=== PATIENT | male | born 1960 | race Caucasian/White ===

== ENCOUNTER 2020-07-13 10:33 | Emergency (ER) | payer MEDICAID, OTHER, SELFPAY ==
--- NOTE | 2020-07-13 10:29 | ED.URI ---
HPI - URI/Sore Throat General Chief Complaint: Dyspnea Stated Complaint: COUGH/DIFF BREATHING 96%2L,?COVID Time Seen by Provider: 07/13/20 10:43 Source: patient Mode of arrival: ambulatory Limitations: no limitations History of Present Illness MD elicited complaint: fever, cough and other (body aches, dyspnea) Onset (ago): day(s) (2) Consistency: progressively worsening Severity: moderate Able to tolerate fluids by mouth: Yes Exacerbating factors: exertion Relieving factors: nothing Context: sick contacts (states people in the house have flu like illness) Associated symptoms: denies other symptoms, fever, chills, myalgias, headache, cough, shortness of breath and nausea Treatments prior to arrival: none Related Data Previous Rx's Medication Instructions Recorded albuterol sulfate 2 puff INHALATION QID PRN #6.7 g 07/13/20 azithromycin See Rx Instructions .ROUTE 07/13/20 .COMPLEX #6 tab dexamethasone 4 mg PO DAILY 5 Days #5 tab 07/13/20 Allergies Allergy/AdvReac Type Severity Reaction Status Date / Time No Known Allergies Allergy Unverified 04/08/20 19:04 [No Known Allergies*] Review of Systems Review of Systems: Constitutional : pos Fever, pos Chills ENT/Mouth : No sore throat, pos Rhinorrhea, No Swallowing Difficulty Eyes: No Eye Pain, No Swelling, No Redness Cardiovascular : No Chest Pain, positive SOB, No Orthopnea, no Edema Respiratory : pos Cough, No Sputum, No Wheezing, positive dyspnea Gastrointestinal : pos Nausea, No Vomiting, No Diarrhea, No abdominal Pain, No Hematochezia, No Melena Genitourinary : No Dysuria, No Urinary Frequency, No Hematuria Musculoskeletal : No joint pain, pos Myalgias Skin : No Skin Lesions, No rash Neuro : No Weakness, No Numbness, No Dizziness, No Headache Psych : No Anxiety/Panic, No Depression Heme/Lymph: No Bruising, No Lymphadenopathy Endocrine : No Polyuria, No Polydipsia All other systems reviewed and are negative [facility] Past Medical History Attestation statement: The following information was validated with the patient. Medical History Depression Diabetes Hyperlipidemia Social History Social History (Updated 07/13/20 @ 10:48 by Haylee Iverson DO) Alcohol intake: never Smoking Status: Never smoker Use of substances other than those prescribed or required for medical reasons: No Advance Directives: No Advance Directives Information Provided: Yes Physical Exam Vital Signs: Vital Signs: Last Vital Signs Temp 99.2 F 07/13/20 10:37 Pulse 86 07/13/20 11:04 Resp 18 07/13/20 10:37 BP 127/68 07/13/20 10:37 Pulse Ox 95 07/13/20 10:37 Body Mass Index 21.9 Appearance: Alert. Oriented X3. No acute distress. Eyes: Pupils equal, round and reactive to light. ENT: Pharynx normal. Neck: Normal inspection. Neck supple. no meningeal signs CVS: Normal heart rate and rhythm. Pulses normal. Respiratory: No respiratory distress. Breath sounds decreased with rhonchi and bilateral lower lobe faint rales Abdomen: Soft and non-tender. Skin: Skin warm and dry. Normal skin color. Normal skin turgor. Extremities: No lower extremity edema. No calf ttp Neuro: Oriented X 3. No motor deficit. No sensory deficit. Course Course Course Narrative: patient requires no O2 at this time sats > 93% and did well with ambulation trial , will treat as COVId and send home with precautions MDM - URI/Sore Throat MDM Narrative Medical decision making narrative: 59 yo male with DM and HPL here with 2 days of URI, body aches, dyspnea sick contacts at home flu will need labs, INH, tylenol, EKG, CXR, COVID swab, currently his O2 sat on ambulation is actually 93%, dispo per results and observation he is not a smoker and denies hx of asthma Lab Data Result diagrams: 07/13/20 10:56 07/13/20 10:56 Labs: Lab Results 07/13/20 07/13/20 07/13/20 Range/Units 10:56 10:56 10:56 WBC 9.1 (4.8-10.8) X10*3/uL RBC 4.36 L (4.60-5.80) X10*6/uL Hgb 13.0 L (14.0-18.0) g/dl Hct 38.3 L (42-52) % MCV 87.8 (80-98) fL MCH 29.8 (27.0-33.0) pg MCHC 33.9 (31.0-36.0) g/dl RDW 12.4 (11.0-16.0) % Plt Count 390 (160-400) X10*3/uL MPV 10.6 (9.4-12.4) fL Immature Gran % (Auto) 1.9 H (0.0-0.4) % Neut % (Auto) 78.8 H (45-73) % Lymph % (Auto) 9.8 L (20-40) % [place] % (Auto) 9.1 (2-11) % Eos % (Auto) 0.2 (0-4) % Baso % (Auto) 0.2 (0-2) % Lymph # (Auto) 0.9 L (1.2-4.9) X10*3/uL [place] # (Auto) 0.8 (0.1-1.2) X10*3/uL Eos # (Auto) 0.0 (0.0-0.4) X10*3/uL Baso # (Auto) 0.0 (0.0-0.2) X10*3/uL Abs Immat Gran (auto) 0.17 H (0.00-0.03) X10*3/uL Absolute Neuts (auto) 7.2 (2.0-8.3) X10*3/uL Absolute Nucleated RBC 0.000 (0.0-0.012) X10*3/uL Nucleated RBC % (auto) 0.0 (0.0-0.2) /100WBC Smear Tech's Comments VERIFIED PT 12.2 (10.8-13.0) SEC INR 1.0 (0.9-1.1) APTT 31.2 (24.1-38.0) SEC VBG pH (7.32-7.43) VBG pCO2 mmhg VBG pO2 mmhg VBG HCO3 mmol/L VBG O2 Saturation % VBG Base Excess mmol/L Sodium 136 (135-145) mmol/L Potassium 4.5 (3.3-5.1) mmol/l Chloride 100 (96-108) mmol/L Carbon Dioxide 27 (22-29) mmol/L Anion Gap 14 (12-20) BUN 12 (9-16) mg/dL Creatinine 0.69 (0.5-1.4) mg/dL Estim Creat Clear Calc 89.8 Estimated GFR > 60 Random Glucose 323 H (60-115) mg/dL Lactic Acid (0.5-2.0) mmol/L Calcium 7.9 L (8.4-10.2) mg/dL Magnesium (1.6-2.6) mg/dL Ferritin (20-250) ng/mL Total Bilirubin (0.0-1.0) mg/dL Direct Bilirubin (0.0-0.5) mg/dL AST (5-37) U/L ALT (0-40) U/L Alkaline Phosphatase (39-117) U/L Lactate Dehydrogenase (118-273) U/L Troponin I High Sens (<3.5-35.0) ng/L Total Protein (6.5-8.0) g/dL Albumin (3.5-5.0) g/dL Lipase (8-78) U/L Procalcitonin ng/mL Coronavirus (PCR) (Negative) Influenza Type A (PCR) (Negative) Influenza Type B (PCR) (Negative) RSV RNA Qual (PCR) (Negative) 07/13/20 07/13/20 07/13/20 Range/Units 10:56 10:56 10:56 WBC (4.8-10.8) X10*3/uL RBC (4.60-5.80) X10*6/uL Hgb (14.0-18.0) g/dl Hct (42-52) % MCV (80-98) fL MCH (27.0-33.0) pg MCHC (31.0-36.0) g/dl RDW (11.0-16.0) % Plt Count (160-400) X10*3/uL MPV (9.4-12.4) fL Immature Gran % (Auto) (0.0-0.4) % Neut % (Auto) (45-73) % Lymph % (Auto) (20-40) % [place] % (Auto) (2-11) % Eos % (Auto) (0-4) % Baso % (Auto) (0-2) % Lymph # (Auto) (1.2-4.9) X10*3/uL [place] # (Auto) (0.1-1.2) X10*3/uL Eos # (Auto) (0.0-0.4) X10*3/uL Baso # (Auto) (0.0-0.2) X10*3/uL Abs Immat Gran (auto) (0.00-0.03) X10*3/uL Absolute Neuts (auto) (2.0-8.3) X10*3/uL Absolute Nucleated RBC (0.0-0.012) X10*3/uL Nucleated RBC % (auto) (0.0-0.2) /100WBC Smear Tech's Comments PT (10.8-13.0) SEC INR (0.9-1.1) APTT (24.1-38.0) SEC VBG pH (7.32-7.43) VBG pCO2 mmhg VBG pO2 mmhg VBG HCO3 mmol/L VBG O2 Saturation % VBG Base Excess mmol/L Sodium (135-145) mmol/L Potassium (3.3-5.1) mmol/l Chloride (96-108) mmol/L Carbon Dioxide (22-29) mmol/L Anion Gap (12-20) BUN (9-16) mg/dL Creatinine (0.5-1.4) mg/dL Estim Creat Clear Calc Estimated GFR Random Glucose (60-115) mg/dL Lactic Acid 1.4 (0.5-2.0) mmol/L Calcium (8.4-10.2) mg/dL Magnesium 1.9 (1.6-2.6) mg/dL Ferritin 554 H (20-250) ng/mL Total Bilirubin 0.3 (0.0-1.0) mg/dL Direct Bilirubin 0.2 (0.0-0.5) mg/dL AST 31 (5-37) U/L ALT 29 (0-40) U/L Alkaline Phosphatase 86 (39-117) U/L Lactate Dehydrogenase 337 H (118-273) U/L Troponin I High Sens < 3.5 (<3.5-35.0) ng/L Total Protein 5.7 L (6.5-8.0) g/dL Albumin 2.8 L (3.5-5.0) g/dL Lipase 30 (8-78) U/L Procalcitonin ng/mL Coronavirus (PCR) (Negative) Influenza Type A (PCR) (Negative) Influenza Type B (PCR) (Negative) RSV RNA Qual (PCR) (Negative) 07/13/20 07/13/20 07/13/20 Range/Units 10:56 10:56 11:05 WBC (4.8-10.8) X10*3/uL RBC (4.60-5.80) X10*6/uL Hgb (14.0-18.0) g/dl Hct (42-52) % MCV (80-98) fL MCH (27.0-33.0) pg MCHC (31.0-36.0) g/dl RDW (11.0-16.0) % Plt Count (160-400) X10*3/uL MPV (9.4-12.4) fL Immature Gran % (Auto) (0.0-0.4) % Neut % (Auto) (45-73) % Lymph % (Auto) (20-40) % [place] % (Auto) (2-11) % Eos % (Auto) (0-4) % Baso % (Auto) (0-2) % Lymph # (Auto) (1.2-4.9) X10*3/uL [place] # (Auto) (0.1-1.2) X10*3/uL Eos # (Auto) (0.0-0.4) X10*3/uL Baso # (Auto) (0.0-0.2) X10*3/uL Abs Immat Gran (auto) (0.00-0.03) X10*3/uL Absolute Neuts (auto) (2.0-8.3) X10*3/uL Absolute Nucleated RBC (0.0-0.012) X10*3/uL Nucleated RBC % (auto) (0.0-0.2) /100WBC Smear Tech's Comments PT (10.8-13.0) SEC INR (0.9-1.1) APTT (24.1-38.0) SEC VBG pH 7.41 (7.32-7.43) VBG pCO2 35 mmhg VBG pO2 54 mmhg VBG HCO3 22 mmol/L VBG O2 Saturation 87.9 % VBG Base Excess -2.1 mmol/L Sodium (135-145) mmol/L Potassium (3.3-5.1) mmol/l Chloride (96-108) mmol/L Carbon Dioxide (22-29) mmol/L Anion Gap (12-20) BUN (9-16) mg/dL Creatinine (0.5-1.4) mg/dL Estim Creat Clear Calc Estimated GFR Random Glucose (60-115) mg/dL Lactic Acid (0.5-2.0) mmol/L Calcium (8.4-10.2) mg/dL Magnesium (1.6-2.6) mg/dL Ferritin (20-250) ng/mL Total Bilirubin (0.0-1.0) mg/dL Direct Bilirubin (0.0-0.5) mg/dL AST (5-37) U/L ALT (0-40) U/L Alkaline Phosphatase (39-117) U/L Lactate Dehydrogenase (118-273) U/L Troponin I High Sens (<3.5-35.0) ng/L Total Protein (6.5-8.0) g/dL Albumin (3.5-5.0) g/dL Lipase (8-78) U/L Procalcitonin 0.17 ng/mL Coronavirus (PCR) POSITIVE A (Negative) Influenza Type A (PCR) NEGATIVE (Negative) Influenza Type B (PCR) NEGATIVE (Negative) RSV RNA Qual (PCR) NEGATIVE (Negative) ECG Data Attestation: I personally reviewed and interpreted this ECG as follows: ECG interpretation date: 07/13/20 ECG interpretation time: 11:14 Interpretation: Rate: 88 Rhythm: NSR [place]: normal Normal P waves. Normal CLEMENT. Normal QRS complex. ST T wave : normal no KENTRELL qTC: normal prior studies: no acute ischemia The study has been interpreted contemporaneously by me. . Discharge Plan Discharge Clinical Impression: COVID-19, Pneumonia due to 2019-nCoV Patient Disposition: Home, Self-Care Instructions: COVID-19 (Coronavirus Disease 2019) (ED) Additional Instructions: return to ED for any worsening symptoms or concerns Prescriptions: New albuterol sulfate 90 mcg/actuation HFA aerosol inhaler 2 puff inhalation QID PRN (Reason: shortness of breath or wheezing) Qty: 6.7 RF: 0 azithromycin 500 mg tablet See Rx Instructions .ROUTE .COMPLEX Qty: 6 RF: 0 dexamethasone 4 mg tablet 4 mg PO DAILY 5 Days Qty: 5 RF: 0 Stand Alone Forms: Work/School Release Print Language: Maldivian
[2020-07-13 10:37] VITALS: BP 127/68; PULSE 84; RESP 18; TEMP 37.3; O2SAT 95; BMI 21.9
--- NOTE | 2020-07-13 10:43 | ECG_ITS ---
Test Reason : SOB Blood Pressure : / mmHG Vent. Rate : 088 BPM Atrial Rate : 088 BPM P-R Int : 138 ms QRS Dur : 070 ms QT Int : 378 ms P-R-T Axes : 037 032 056 degrees QTc Int : 457 ms Normal sinus rhythm Normal ECG No previous ECGs available Referred By: Haylee Iverson Electronically Signed By:JESUSITA DIXON MD
--- NOTE | 2020-07-13 10:44 | XR_ITS ---
EXAMINATION: XR CHEST CLINICAL INFORMATION: Dyspnea and fever COMPARISON: None TECHNIQUE: Frontal view of the chest was obtained. FINDINGS: The cardiac and mediastinal contours are normal. There are patchy bilateral infiltrates suggestive of pneumonia. The lung volumes are low. There is no pleural effusion or pneumothorax. There are degenerative changes of the spine. XR/XR chest 1V IMPRESSION: Bilateral infiltrates suggestive of pneumonia.
[2020-07-13] MEDS: Albuterol Sulfate 90 MCG 8 GM INHALER 4 PUFF INHALE (11:03)
[2020-07-13 11:04] VITALS: PULSE 86; O2SAT 97
[2020-07-13 11:13] LABS: Basophils Percent Auto 0.2 % (0-2); Eosinophils Percent Auto 0.2 % (0-4); Hematocrit 38.3 % (42-52); Imm Gran Abs Auto 0.17 X10*3/uL (0.00-0.03); Imm Gran Pct Auto 1.9 % (0.0-0.4); Lymphocytes Absolute Auto 0.9 X10*3/uL (1.2-4.9); Lymphocytes Percent Auto 9.8 % (20-40); MANUAL DIFF FLAG SCAN; Mean Corpuscular HGB Conc 33.9 g/dl (31.0-36.0); Mean Corpuscular Hemoglobin 29.8 pg (27.0-33.0); Mean Corpuscular Volume 87.8 fL (80-98); Mean Platelet Volume 10.6 fL (9.4-12.4); Monocytes Absolute Auto 0.8 X10*3/uL (0.1-1.2); Monocytes Percent Auto 9.1 % (2-11); Neutrophils Absolute Auto 7.2 X10*3/uL (2.0-8.3); Neutrophils Percent Auto 78.8 % (45-73); Platelet Count 390 X10*3/uL (160-400); Red Blood Count 4.36 X10*6/uL (4.60-5.80); Red Cell Distribution Width 12.4 % (11.0-16.0); SCAN SMEAR FLAG 1; White Blood Count 9.1 X10*3/uL (4.8-10.8)
[2020-07-13 11:18] LABS: Prothrombin Time 12.2 SEC (10.8-13.0)
[2020-07-13 11:21] LABS: Partial Thromboplastin Time 31.2 SEC (24.1-38.0)
[2020-07-13 11:23] LABS: Base Excess VBG -2.1 mmol/L; HCO3 VBG 22 mmol/L; Oxygen Saturation VBG 87.9 %
[2020-07-13 11:24] LABS: PCO2 VBG 35 mmhg; PO2 VBG 54 mmhg; pH VBG 7.41 (7.32-7.43)
[2020-07-13 11:33] LABS: Lactic Acid 1.4 mmol/L (0.5-2.0)
[2020-07-13 11:41] LABS: Alanine Aminotransferase 29 U/L (0-40); Albumin Level 2.8 g/dL (3.5-5.0); Alkaline Phosphatase 86 U/L (39-117); Aspartate Amino Transferase 31 U/L (5-37); Bilirubin Direct 0.2 mg/dL (0.0-0.5); Bilirubin Total 0.3 mg/dL (0.0-1.0); Lactate Dehydrogenase 337 U/L (118-273); Lipase 30 U/L (8-78); Magnesium 1.9 mg/dL (1.6-2.6); Total Protein 5.7 g/dL (6.5-8.0)
[2020-07-13 11:42] LABS: Anion Gap 14 (12-20); Blood Urea Nitrogen 12 mg/dL (9-16); Calcium 7.9 mg/dL (8.4-10.2); Carbon Dioxide 27 mmol/L (22-29); Chloride 100 mmol/L (96-108); Creatinine Clr Calc Pharmacy 89.8; Estimated Glomerular Filt Rate > 60; Glucose Random 323 mg/dL (60-115); Potassium 4.5 mmol/l (3.3-5.1); Sodium 136 mmol/L (135-145)
[2020-07-13 11:45] LABS: Troponin-I High Sensitivity < 3.5 ng/L (<3.5-35.0)
[2020-07-13 11:47] LABS: Influenza A PCR NEGATIVE (Negative); Influenza B PCR NEGATIVE (Negative); Resp Syncy Virus RNA Qual PCR NEGATIVE (Negative); SARS COV2 PCR INHOUSE POSITIVE (Negative)
[2020-07-13 11:48] LABS: SLIDE REVIEW VERIFIED
[2020-07-13 12:05] LABS: Procalcitonin 0.17 ng/mL
[2020-07-13 12:06] LABS: Ferritin 554 ng/mL (20-250)
[2020-07-13 12:26] VITALS: BP 123/67; PULSE 91; RESP 16; TEMP 37.3; O2SAT 92
[2020-07-13] MEDS: cefTRIAXone sodium 1 GM in 0.9 % Sodium Chloride 50 ML IV (12:42)
[2020-07-13] MEDS: Acetaminophen 325 MG TABLET 650 MG PO (12:42)
== END 2020-07-13 15:03 | disposition home or self-care (01) ==
PROVIDERS: Emergency Provider Emergency Medicine
DX: U07.1 COVID-19 (principal); J12.89 Other viral pneumonia; R05 Cough; M79.10 Myalgia, unspecified site; Z79.899 Other long term (current) drug therapy
CPT/HCPCS: 0241U; 36415; 71045; 80048; 80076; 82728; 82803; 83605; 83615; 83690; 83735; 84145; 84484; 85025; 85610; 85730; 87040; 93005; 94640; 96365; 99284; J0696

== ENCOUNTER 2023-07-02 09:34 | Outpatient (REF) | payer MEDICAID, OTHER, SELFPAY ==
[2023-07-02 11:42] LABS: Basophils Percent Auto 0.5 % (0-2); Eosinophils Absolute Auto 0.1 X10*3/uL (0.0-0.4); Hemoglobin 15.4 g/dl (14.0-18.0); Imm Gran Abs Auto 0.02 X10*3/uL (0.00-0.03); Imm Gran Pct Auto 0.3 % (0.0-0.4); Lymphocytes Absolute Auto 2.1 X10*3/uL (1.2-4.9); Lymphocytes Percent Auto 36.7 % (20-40); MANUAL DIFF FLAG SCAN; Mean Corpuscular HGB Conc 33.5 g/dl (31.0-36.0); Mean Corpuscular Hemoglobin 30.3 pg (27.0-33.0); Mean Corpuscular Volume 90.6 fL (80.0-98.0); Mean Platelet Volume 11.2 fL (9.4-12.4); Monocytes Absolute Auto 0.5 X10*3/uL (0.1-1.2); Neutrophils Absolute Auto 3.1 x10*3/uL (2.0-8.3); Neutrophils Percent Auto 52.5 % (45-73); Platelet Count 300 X10*3/uL (160-400); Red Blood Count 5.08 X10*6/uL (4.60-5.80); Red Cell Distribution Width 12.4 % (11.0-16.0); SCAN SMEAR FLAG 1; White Blood Count 5.8 X10*3/uL (4.8-10.8)
[2023-07-02 12:04] LABS: SLIDE REVIEW VERIFIED
[2023-07-02 12:16] LABS: Alanine Aminotransferase 17 U/L (0-40); Albumin Level 4.4 g/dL (3.5-5.0); Alkaline Phosphatase 144 U/L (39-117); Anion Gap 16 (12-20); Aspartate Amino Transferase 17 U/L (5-37); Bilirubin Total 0.3 mg/dL (0.0-1.0); Blood Urea Nitrogen 23 mg/dL (9-16); Carbon Dioxide 23 mmol/L (22-29); Chloride 103 mmol/L (96-108); Cholesterol 258 mg/dL (<200); Estimated Glomerular Filt Rate > 60; Glucose Random 402 mg/dL (60-115); HDL Cholesterol 66 mg/dL (>40); LDL Cholesterol Calculated 153 mg/dL (<100); Potassium 4.8 mmol/L (3.3-5.1); Sodium 137 mmol/L (135-145); Total Protein 7.9 g/dL (6.5-8.0); Triglycerides 195 mg/dL (<150)
[2023-07-02 12:47] LABS: Creatinine Urine 44.48 mg/dL; Microalbum/Creatinine Ratio Ur 53.9 ug/mg cr (<30)
== END 2023-07-02 09:35 | disposition home or self-care (01) ==
LOC: HO.HHCL 09:34
PROVIDERS: Visit Provider Internal Medicine Geriatric Medicine
DX: E11.65 Type 2 diabetes mellitus with hyperglycemia (principal); E11.42 Type 2 diabetes mellitus with diabetic polyneuropathy; E11.319 Type 2 diabetes mellitus with unspecified diabetic retinopathy without macular edema; H54.7 Unspecified visual loss; Z79.4 Long term (current) use of insulin
CPT/HCPCS: 36415; 80053; 80061; 82043; 82570; 85025

== ENCOUNTER 2023-09-03 16:34 | Inpatient (IN) | payer MEDICAID, OTHER, SELFPAY ==
[2023-09-03 16:57] VITALS: BP 149/86; PULSE 84; O2SAT 98; BMI 22.5
--- NOTE | 2023-09-03 17:01 | ED.GENADULT ---
HPI - General Adult General Chief complaint: Recheck/Abnormal Lab/Rx Stated complaint: LIGHTHEADED,THIRSTY,HX DIABETES,SUGAR READS HIGH Time Seen by Provider: 09/03/23 16:40 Source: patient Mode of arrival: EMS Limitations: language barrier (Faroese-speaking casino floorperson utilized) History of Present Illness HPI narrative: Patient is a 62-year-old male who presents emergency department via EMS coming from doctor's office at [facility]. He reported there today due to feelings of dizziness, increased thirst. Reportedly his blood glucose level at that time was reading ?high? and was found to have glucosuria but no ketonuria thus he was transported to the ED. He states that he was feeling slightly dizzy yesterday but increasingly more dizzy today, dizziness is described as a lightheaded feeling, unsteady on his feet, generalized weakness. Has associated nausea but no vomiting. He has history of diabetes, reports compliance with his insulin lispro; 12 units in the morning, 12 units in the afternoon, 16 units at night and Trulicity once weekly. Reports over the past week his blood sugars have ranged from 330-340 and improves to around 220 after taking insulin. Denies fevers, chills, URI symptoms, headache, neck pain, chest pain, shortness of breath, numbness or tingling of the extremities, dysuria, hematuria. Related Data Home Medications Medication Instructions Recorded Confirmed insulin glargine 100 unit/mL 30 unit subcut BEDTIME 07/13/20 09/03/23 subcutaneous solution (Lantus U-100 Insulin) insulin lispro 100 unit/mL 14 unit subcut TIDAC 07/13/20 09/03/23 subcutaneous solution (Humalog U-100 Insulin) dulaglutide 0.75 mg/0.5 mL 0.75 mg subcut MO 09/03/23 09/03/23 subcutaneous pen injector (Trulicity) Allergies Allergy/AdvReac Type Severity Reaction Status Date / Time No Known Allergies Allergy Unverified 04/08/20 19:04 [No Known Allergies*] Review of Systems Review of Systems: Yes all other systems are reviewed and are negative PMFSH Past Medical History Attestation statement: The following information was validated with the patient. Source: old records reviewed Medical History Hyperlipidemia Depression Diabetes Social History Social History Alcohol intake: current Alcohol intake frequency: holidays/special occasions only Smoked in Last 30 Days: No Use of substances other than those prescribed or required for medical reasons: No Advance Directives: No Advance Directives Information Provided: No Physical Exam ED Vital Signs: Vital Signs - 24 hr 09/03/23 17:59 Temperature 98.9 F Pulse Rate 88 Respiratory Rate 14 Blood Pressure 121/67 Pulse Oximetry 96 Oxygen Delivery Method Room Air BMI result Body Mass Index 22.5 Appearance: Alert.?Oriented to person, place and time. No acute distress.?Normal affect. Eyes: Pupils equal, round and reactive to light.? ENT: Pharynx normal.?? Neck: Normal inspection.? Neck supple.?? CVS: Heart sounds normal. Normal heart rate and rhythm.? Pulses normal.?? Respiratory: No respiratory distress.? Lung sounds clear to auscultation bilaterally?? Abdomen: Soft and non-tender. Normoactive bowel sounds. Skin: Skin warm and dry.? Normal skin color.? Extremities: No lower extremity edema.? No calf ttp? Neuro: Moves all extremities spontaneously. Sensation intact bilaterally. CN II-XII intact. No focal neuro deficits. Ambulates with normal steady gait. Course Reevaluation(s) Reevaluation #1: Patient receiving IV fluids, 10 units regular insulin IV. CBC is without leukocytosis, mild normocytic anemia. Corrected sodium of 141 for hyperglycemia. Glucosuria, no ketonuria, beta hydroxy normal. Not consistent with DKA/HHS. Ambulatory to the bathroom slightly unsteady gait, reporting persistent dizziness and generalized weakness. Admitted to medicine service under Dr. Alfred Time: 19:32 Medications Administered Generic Name Dose Route Start Last Admin Trade Name Freq PRN Reason Stop Dose Admin Enoxaparin Sodium 40 mg 09/03/23 20:00 09/03/23 21:00 Enoxaparin Sodium 40 Mg/0.4 Ml Syringe SUBCUT 40 mg Q24H KENIA Administration Discontinued Medications Generic Name Dose Route Start Last Admin Trade Name Freq PRN Reason Stop Dose Admin Sodium Chloride 1,000 mls @ 999 mls/hr 09/03/23 17:00 09/03/23 18:35 Ns IV 09/03/23 18:00 999 mls/hr .Q1H1M KENIA Infusion Insulin Human Regular 5 unit 09/03/23 19:21 09/03/23 19:52 Insulin Regular, Human 100 Unit/Ml 3 Ml Vial IVPUSH 09/03/23 19:22 5 unit ONCE ONE Administration Insulin Human Regular 10 unit 09/03/23 19:21 09/03/23 19:50 Insulin Regular, Human 100 Unit/Ml 3 Ml Vial IVPUSH 09/03/23 19:22 10 unit ONCE ONE Administration Medical Decision Making Medical Decision Making [facility] Narrative: Patient is a 62-year-old male with past medical history of hyperlipidemia, hypertension, type 2 diabetes, depression presenting to emergency department via EMS for evaluation of dizziness and increased thirst coming from doctor's office with hyperglycemia. He is conscious alert and oriented x4, speaking clear full sentences. No evidence of metabolic encephalopathy. Physical exam is benign. Ambulatory with a steady gait. Plan to obtain serum labs to evaluate for DKA/HHS, treat hyperglycemia, disposition pending results. Differential Diagnosis Differential Diagnoses: The differential diagnosis associated with the presentation includes (DKA, HHS, non-anion gap hyperglycemia. Less likely vertigo. NIH 0 do not suspect posterior circulation stroke.) Admission/Observation Consideration of admission/observation: Escalation of care including admission/observation considered (See narrative above and course narrative for further details) Lab Data [facility] Lab Attestation statement: I reviewed the patient's lab results. (See course narrative) 09/03/23 17:34 09/03/23 17:33 Labs: Lab Results 09/03/23 09/03/23 09/03/23 Range/Units 17:33 17:34 17:38 WBC 5.6 (4.8-10.8) X10*3/uL RBC 4.38 L (4.60-5.80) X10*6/uL Hgb 13.3 L (14.0-18.0) g/dl Hct 38.9 L (42.0-52.0) % MCV 88.8 (80.0-98.0) fL MCH 30.4 (27.0-33.0) pg MCHC 34.2 (31.0-36.0) g/dl RDW 12.8 (11.0-16.0) % Plt Count 270 (160-400) X10*3/uL MPV 10.8 (9.4-12.4) fL Immature Gran % (Auto) 0.5 H (0.0-0.4) % Neut % (Auto) 70.7 (45-73) % Lymph % (Auto) 20.1 (20-40) % [place] % (Auto) 7.5 (2-11) % Eos % (Auto) 0.7 (0-4) % Baso % (Auto) 0.5 (0-2) % Lymph # (Auto) 1.1 L (1.2-4.9) X10*3/uL [place] # (Auto) 0.4 (0.1-1.2) X10*3/uL Eos # (Auto) 0.0 (0.0-0.4) X10*3/uL Baso # (Auto) 0.0 (0.0-0.2) X10*3/uL Abs Immat Gran (auto) 0.03 (0.00-0.03) X10*3/uL Absolute Neuts (auto) 3.9 (2.0-8.3) x10*3/uL Absolute Nucleated RBC 0.000 (0.0-0.012) X10*3/uL Nucleated RBC % (auto) 0.0 (0.0-0.2) /100WBC Sodium 132 L (135-145) mmol/L Potassium 4.8 (3.3-5.1) mmol/L Chloride 103 (96-108) mmol/L Carbon Dioxide 23 (22-29) mmol/L Anion Gap 11 L (12-20) BUN 18 H (9-16) mg/dL Creatinine 1.21 (0.5-1.4) mg/dL Estim Creat Clear Calc 55.5 Estimated GFR > 60 POC Glucose (60-115) mg/dL Random Glucose 677 H* (60-115) mg/dL Calcium 8.5 D (8.4-10.2) mg/dL Magnesium 2.1 (1.6-2.6) mg/dL Total Bilirubin 0.3 (0.0-1.0) mg/dL AST 11 (5-37) U/L ALT 11 (0-40) U/L Alkaline Phosphatase 169 H (39-117) U/L Troponin I High Sens < 2.7 (<3.5-35.0) ng/L Total Protein 6.5 (6.5-8.0) g/dL Albumin 3.6 (3.5-5.0) g/dL Lipase 31 (8-78) U/L Beta-Hydroxybutyrate 0.16 (0.02-0.27) mmol/L Urine Color Yellow Urine Appearance Clear Urine pH 6.0 (5.0-9.0) Ur Specific [place] >= 1.030 H (1.005-1.025) Urine Protein Negative (Neg-Trace) mg/dL Urine Glucose (UA) >=1000 H (Negative) mg/dL Urine Ketones Negative (Negative) mg/dL Urine Blood Negative (Negative) Urine Nitrite Negative (Negative) Ur Leukocyte Esterase Negative (Negative) Urine RBC 0-2 (0-2) /HPF Urine WBC 0-5 (0-5) /HPF Ur Squamous Epith Cells 0-2 (0-2) /HPF Urine Bacteria None Seen (None Seen) Hyaline Casts 0-2 (0-2) /LPF COVID-19 (LELO) Negative (Negative) COVID-19 Clin Com See Note Influenza Type A (SHERLYN) Negative (Negative) Influenza Type B (SHERLYN) Negative (Negative) Influenza A & B Note See Note 09/03/23 Range/Units 17:44 WBC (4.8-10.8) X10*3/uL RBC (4.60-5.80) X10*6/uL Hgb (14.0-18.0) g/dl Hct (42.0-52.0) % MCV (80.0-98.0) fL MCH (27.0-33.0) pg MCHC (31.0-36.0) g/dl RDW (11.0-16.0) % Plt Count (160-400) X10*3/uL MPV (9.4-12.4) fL Immature Gran % (Auto) (0.0-0.4) % Neut % (Auto) (45-73) % Lymph % (Auto) (20-40) % [place] % (Auto) (2-11) % Eos % (Auto) (0-4) % Baso % (Auto) (0-2) % Lymph # (Auto) (1.2-4.9) X10*3/uL [place] # (Auto) (0.1-1.2) X10*3/uL Eos # (Auto) (0.0-0.4) X10*3/uL Baso # (Auto) (0.0-0.2) X10*3/uL Abs Immat Gran (auto) (0.00-0.03) X10*3/uL Absolute Neuts (auto) (2.0-8.3) x10*3/uL Absolute Nucleated RBC (0.0-0.012) X10*3/uL Nucleated RBC % (auto) (0.0-0.2) /100WBC Sodium (135-145) mmol/L Potassium (3.3-5.1) mmol/L Chloride (96-108) mmol/L Carbon Dioxide (22-29) mmol/L Anion Gap (12-20) BUN (9-16) mg/dL Creatinine (0.5-1.4) mg/dL Estim Creat Clear Calc Estimated GFR POC Glucose 559 H* (60-115) mg/dL Random Glucose (60-115) mg/dL Calcium (8.4-10.2) mg/dL Magnesium (1.6-2.6) mg/dL Total Bilirubin (0.0-1.0) mg/dL AST (5-37) U/L ALT (0-40) U/L Alkaline Phosphatase (39-117) U/L Troponin I High Sens (<3.5-35.0) ng/L Total Protein (6.5-8.0) g/dL Albumin (3.5-5.0) g/dL Lipase (8-78) U/L Beta-Hydroxybutyrate (0.02-0.27) mmol/L Urine Color Urine Appearance Urine pH (5.0-9.0) Ur Specific [place] (1.005-1.025) Urine Protein (Neg-Trace) mg/dL Urine Glucose (UA) (Negative) mg/dL Urine Ketones (Negative) mg/dL Urine Blood (Negative) Urine Nitrite (Negative) Ur Leukocyte Esterase (Negative) Urine RBC (0-2) /HPF Urine WBC (0-5) /HPF Ur Squamous Epith Cells (0-2) /HPF Urine Bacteria (None Seen) Hyaline Casts (0-2) /LPF COVID-19 (LELO) (Negative) COVID-19 Clin Com Influenza Type A (SHERLYN) (Negative) Influenza Type B (SHERLYN) (Negative) Influenza A & B Note Independent Historian Clinical information obtained from an independent historian. History obtained from or confirmed by: EMS External Record Review External record reviewed: Primary care record (Paper records from PCP office) Critical Care Time Critical Care Time Critical Care Time: Yes Total Critical Care Time: 40 Attestation: I personally attest to this critical care time spent taking care of the patient exclusive of all other billable procedures was approximately 40 minutes including initial evaluation of patient, ordering tests, x-ray interpretation, EKG interpretation, medical consultation, documentation, re-evaluation. Discharge Plan Discharge Clinical Impression: Uncontrolled diabetes mellitus with hyperglycemia Patient Disposition: Admitted As Inpatient
[2023-09-03 17:41] LABS: MANUAL DIFF FLAG NO
[2023-09-03 17:46] LABS: Basophils Percent Auto 0.5 % (0-2); Eosinophils Percent Auto 0.7 % (0-4); Hematocrit 38.9 % (42.0-52.0); Hemoglobin 13.3 g/dl (14.0-18.0); Imm Gran Abs Auto 0.03 X10*3/uL (0.00-0.03); Imm Gran Pct Auto 0.5 % (0.0-0.4); Lymphocytes Absolute Auto 1.1 X10*3/uL (1.2-4.9); Lymphocytes Percent Auto 20.1 % (20-40); Mean Corpuscular HGB Conc 34.2 g/dl (31.0-36.0); Mean Corpuscular Hemoglobin 30.4 pg (27.0-33.0); Mean Corpuscular Volume 88.8 fL (80.0-98.0); Mean Platelet Volume 10.8 fL (9.4-12.4); Monocytes Absolute Auto 0.4 X10*3/uL (0.1-1.2); Monocytes Percent Auto 7.5 % (2-11); Neutrophils Absolute Auto 3.9 x10*3/uL (2.0-8.3); Neutrophils Percent Auto 70.7 % (45-73); Platelet Count 270 X10*3/uL (160-400); Red Blood Count 4.38 X10*6/uL (4.60-5.80); Red Cell Distribution Width 12.8 % (11.0-16.0); White Blood Count 5.6 X10*3/uL (4.8-10.8)
[2023-09-03 17:48] LABS: Glucose, Whole Blood 559 mg/dL (60-115)
[2023-09-03 17:48] LABS: Appearance Urine Clear; Color Urine Yellow; Glucose Urine UA >=1000 mg/dL (Negative); Leukocyte Esterase Urine Negative (Negative); Nitrite Urine Negative (Negative); Specific Gravity - Urine >= 1.030 (1.005-1.025); UMIC TRIGGER UACC YES; Urine Blood Negative (Negative); Urine Ketones Negative (Negative); Urine Protein Negative (Neg-Trace)
[2023-09-03] MEDS: 0.9 % Sodium Chloride 1,000 ML 999 ML IV (17:52)
[2023-09-03 17:53] LABS: Bacteria Urine None Seen (None Seen); Hyaline Casts Urine 0-2 /LPF (0-2); RBC Urine 0-2 /HPF (0-2); Squamous Epithelial Cell Urine 0-2 /HPF (0-2); WBC Urine 0-5 /HPF (0-5)
[2023-09-03 17:59] VITALS: BP 121/67; PULSE 88; RESP 14; TEMP 37.2; O2SAT 96
[2023-09-03 18:01] LABS: COVID-19 Test Negative (Negative); IDNOW Serial# 9DB6401D
[2023-09-03 18:07] LABS: Troponin-I High Sensitivity < 2.7 ng/L (<3.5-35.0)
[2023-09-03 18:10] LABS: IDNOW Serial# 58CA691E; Influenza A Negative (Negative); Influenza B2 Negative (Negative)
[2023-09-03 19:19] LABS: Alanine Aminotransferase 11 U/L (0-40); Albumin Level 3.6 g/dL (3.5-5.0); Alkaline Phosphatase 169 U/L (39-117); Anion Gap 11 (12-20); Aspartate Amino Transferase 11 U/L (5-37); Beta-Hydroxybutyrate 0.16 mmol/L (0.02-0.27); Bilirubin Total 0.3 mg/dL (0.0-1.0); Blood Urea Nitrogen 18 mg/dL (9-16); Calcium 8.5 mg/dL (8.4-10.2); Carbon Dioxide 23 mmol/L (22-29); Chloride 103 mmol/L (96-108); Creatinine Clr Calc Pharmacy 55.5; Estimated Glomerular Filt Rate > 60; Glucose Random 677 mg/dL (60-115); Lipase 31 U/L (8-78); Magnesium 2.1 mg/dL (1.6-2.6); Potassium 4.8 mmol/L (3.3-5.1); Sodium 132 mmol/L (135-145); Total Protein 6.5 g/dL (6.5-8.0)
--- NOTE | 2023-09-03 19:23 | P.HPHOSP_ITS ---
History of Present Illness Date of Service: 09/03/23 Chief Complaint: High blood glucose This is a 62-year-old male with pertinent history of insulin-dependent diabetes mellitus, essential hypertension who was sent to the emergency department for evaluation of elevated blood glucose. Patient states he went to his PCP's office today and his blood sugar was found to be elevated and he was sent to the ER. Does endorse increased thirst and frequent urination. Patient states he is compliant with his home insulin but is unable to elaborate his regimen. He seems confused between short-acting and long-acting insulin and the amount of units he is taking. Patient also complains of dizziness when he tries to get up and sensation that he would pass out. No fever, chills, chest discomfort, vomiting, shortness of breath, palpitations, abdominal pain, changes in bowel habits. In the emergency department, patient's blood glucose found to be significantly elevated Review of Systems 2 Constitutional: Constitutional: Reports lethargy and Reports weakness ENT: Reports dizziness Cardiovascular: Cardiovascular: Reports no additional cardiovascular complaints Respiratory: Respiratory: Reports no additional respiratory complaints Gastrointestinal: Gastrointestinal: Reports no additional gastrointestinal complaints Genitourinary: Genitourinary: Reports no additional male genitourinary complaints Neurologic: Reports dizziness and Reports weakness Endocrine: Endocrine: Reports polydipsia and Reports polyuria [facility] Medical History Hyperlipidemia Depression Diabetes Pertinent family history: No family history of early CAD Social History Alcohol intake: current Alcohol intake frequency: holidays/special occasions only Smoked in Last 30 Days: No Use of substances other than those prescribed or required for medical reasons: No Advance Directives: No Advance Directives Information Provided: No Meds Allergies Allergy/AdvReac Type Severity Reaction Status Date / Time No Known Allergies Allergy Unverified 04/08/20 19:04 [No Known Allergies*] Home Medications Medication Instructions Recorded Confirmed Last Taken Type insulin glargine 100 unit/mL 30 unit subcut BEDTIME 07/13/20 09/03/23 Unknown History subcutaneous solution (Lantus U-100 Insulin) insulin lispro 100 unit/mL 14 unit subcut TIDAC 07/13/20 09/03/23 Unknown History subcutaneous solution (Humalog U-100 Insulin) dulaglutide 0.75 mg/0.5 mL 0.75 mg subcut [place] 09/03/23 09/03/23 Unknown History subcutaneous pen injector (Trulickrista) Physical Exam 2 Vital Signs and Narrative: Vital Signs: Last Vital Signs Temp 98.9 F 09/03/23 17:59 Pulse 88 09/03/23 17:59 Resp 14 09/03/23 17:59 BP 121/67 09/03/23 17:59 Pulse Ox 96 09/03/23 17:59 O2 Del Method Room Air 09/03/23 17:59 BMI result Body Mass Index 22.5 Middle-aged male lying in bed in no distress Neck supple, no JVD Regular rate and rhythm, S1-S2 heard Regular breath sounds bilaterally, no wheezing or crackles appreciated Abdomen soft nontender, no guarding, no rigidity Patient is awake, alert and oriented to self, place, time and person ; no focal motor deficit Psych: Normal mood No pedal edema Results Labs 09/03/23 17:34 09/03/23 17:33 Labs: Laboratory Results - last 24 hr 09/03/23 09/03/23 09/03/23 17:33 17:34 17:38 MCV 88.8 MCH 30.4 MCHC 34.2 RDW 12.8 Plt Count 270 MPV 10.8 Immature Gran % (Auto) 0.5 H Neut % (Auto) 70.7 Lymph % (Auto) 20.1 [place] % (Auto) 7.5 Eos % (Auto) 0.7 Baso % (Auto) 0.5 Lymph # (Auto) 1.1 L [place] # (Auto) 0.4 Eos # (Auto) 0.0 Baso # (Auto) 0.0 Abs Immat Gran (auto) 0.03 Absolute Neuts (auto) 3.9 Absolute Nucleated RBC 0.000 Nucleated RBC % (auto) 0.0 Anion Gap 11 L Estim Creat Clear Calc 55.5 Estimated GFR > 60 POC Glucose Random Glucose 677 H* Calcium 8.5 D Magnesium 2.1 Total Bilirubin 0.3 AST 11 ALT 11 Alkaline Phosphatase 169 H Total Protein 6.5 Albumin 3.6 Lipase 31 Beta-Hydroxybutyrate 0.16 Urine Color Yellow Urine Appearance Clear Urine pH 6.0 Ur Specific [place] >= 1.030 H Urine Protein Negative Urine Glucose (UA) >=1000 H Urine Ketones Negative Urine Blood Negative Urine Nitrite Negative Ur Leukocyte Esterase Negative Urine RBC 0-2 Urine WBC 0-5 Ur Squamous Epith Cells 0-2 Urine Bacteria None Seen Hyaline Casts 0-2 COVID-19 (LELO) Negative COVID-19 Clin Com See Note Influenza Type A (SHERLYN) Negative Influenza Type B (SHERLYN) Negative Influenza A & B Note See Note 09/03/23 17:44 MCV MCH MCHC RDW Plt Count MPV Immature Gran % (Auto) Neut % (Auto) Lymph % (Auto) [place] % (Auto) Eos % (Auto) Baso % (Auto) Lymph # (Auto) [place] # (Auto) Eos # (Auto) Baso # (Auto) Abs Immat Gran (auto) Absolute Neuts (auto) Absolute Nucleated RBC Nucleated RBC % (auto) Anion Gap Estim Creat Clear Calc Estimated GFR POC Glucose 559 H* Random Glucose Calcium Magnesium Total Bilirubin AST ALT Alkaline Phosphatase Total Protein Albumin Lipase Beta-Hydroxybutyrate Urine Color Urine Appearance Urine pH Ur Specific [place] Urine Protein Urine Glucose (UA) Urine Ketones Urine Blood Urine Nitrite Ur Leukocyte Esterase Urine RBC Urine WBC Ur Squamous Epith Cells Urine Bacteria Hyaline Casts COVID-19 (LELO) COVID-19 Clin Com Influenza Type A (SHERLYN) Influenza Type B (SHERLYN) Influenza A & B Note Assessment and Plan (1) Uncontrolled diabetes mellitus with hyperglycemia: Status: Acute Plan This is a 62-year-old male with pertinent history of insulin-dependent diabetes mellitus, essential hypertension who was sent to the emergency department for evaluation of elevated blood glucose. #. Uncontrolled insulin-dependent diabetes mellitus with hyperglycemia: ?compliance with insulin regimen. Patient states that he is taking his insulin but is confused with this regimen during evaluation. Initiating basal bolus regimen. Monitor blood glucose levels and titrate accordingly. No DKA #. Presyncope, likely orthostatic in the setting of above: Resuscitating her IV crystalloids. Orthostatic vital signs in a.m.. Also obtaining B12 to complete dizziness workup #. Generalized weakness: Patient states he is having difficulty with ADLs due to progressive debility. Consulting Physical therapy to evaluate and treat. #. Pseudo hyponatremia in the setting of hyperglycemia #. Essential hypertension: Patient states he has no longer on losartan #. Mixed hyperlipidemia: Not taking atorvastatin DVT prophylaxis: Lovenox Full Code Admit as inpatient and will require two night minimum hospital stay for close monitoring of blood glucose levels, titration of basal bolus insulin regimen and evaluation of generalized weakness by Physical therapy for safe disposition (as above), which is not possible in a lesser acute setting. Quality Stroke Does the patient have a stroke diagnosis?: No VTE Prior VTE?: No VTE Risk Level:: Medical - moderate - high VTE Device Contraindication: Treatment Not Indicated VTE Drug Contraindication: N/A - Med Ordered
[2023-09-03 19:35] LABS: Glucose, Whole Blood 426 mg/dL (60-115)
[2023-09-03] MEDS: Insulin Regular, Human 100 UNIT/ML 3 ML VIAL 10 UNIT IVPUSH (19:50)
[2023-09-03] MEDS: Insulin Regular, Human 100 UNIT/ML 3 ML VIAL IVPUSH (19:52)
--- NOTE | 2023-09-03 20:10 | PHA.MEDREC ---
Pharmacy Consult ? Medication Reconciliation Pharmacy has completed the medication reconciliation. Patient very confused. Report insulin before meals is 14 units. Patient report lantus at night is 30 units. Report the only tablet he takes is for memory. Patient does not recognize losartan 25 mg QD or atorvastatin 40 mg QD. Smitha Juárez ,PharmD
[2023-09-03 20:41] LABS: Venous Blood Gas Refer to POC result
[2023-09-03 20:42] LABS: VBG Base Excess -0.8 mmol/L; VBG HCO3 23 mmol/L (22-26); VBG pCO2 36 mmHg; VBG pH 7.41 (7.32-7.43); VBG pO2 148 mmHg
[2023-09-03] MEDS: Enoxaparin Sodium 40 MG/0.4 ML SYRINGE SUBCUT (21:00)
[2023-09-03 22:51] LABS: Glucose, Whole Blood 119 mg/dL (60-115)
[2023-09-03] MEDS: Insulin Glargine,Hum.rec.anlog 100 UNIT/ML 10 ML VIAL 30 UNIT SUBCUT (22:57)
[2023-09-03] MEDS: Lactated Ringers 1,000 ML 150 ML IVCONT (22:58)
[2023-09-03 23:43] VITALS: BP 119/62; PULSE 90; RESP 12; TEMP 37.3; O2SAT 97
[2023-09-04] VITALS (8 sets, daily range): BP systolic 110–133; BP diastolic 57–79; PULSE 82–101; RESP 16–18; TEMP 36.4–36.8; O2SAT 96–97; BMI 21.1
[2023-09-04 03:01] LABS: Vitamin B12 1971 pg/mL (200-900)
[2023-09-04 06:41] LABS: Basophils Percent Auto 0.4 % (0-2); Eosinophils Absolute Auto 0.1 X10*3/uL (0.0-0.4); Eosinophils Percent Auto 0.6 % (0-4); Hematocrit 36.8 % (42.0-52.0); Hemoglobin 12.8 g/dl (14.0-18.0); Imm Gran Abs Auto 0.04 X10*3/uL (0.00-0.03); Imm Gran Pct Auto 0.5 % (0.0-0.4); Lymphocytes Absolute Auto 2.3 X10*3/uL (1.2-4.9); Lymphocytes Percent Auto 29.4 % (20-40); Mean Corpuscular HGB Conc 34.8 g/dl (31.0-36.0); Mean Corpuscular Hemoglobin 30.9 pg (27.0-33.0); Mean Corpuscular Volume 88.9 fL (80.0-98.0); Mean Platelet Volume 11.4 fL (9.4-12.4); Monocytes Absolute Auto 0.5 X10*3/uL (0.1-1.2); Monocytes Percent Auto 6.9 % (2-11); Neutrophils Absolute Auto 4.9 x10*3/uL (2.0-8.3); Neutrophils Percent Auto 62.2 % (45-73); Platelet Count 218 X10*3/uL (160-400); Red Blood Count 4.14 X10*6/uL (4.60-5.80); Red Cell Distribution Width 13.1 % (11.0-16.0); White Blood Count 7.8 X10*3/uL (4.8-10.8)
[2023-09-04 06:52] LABS: Anion Gap 12 (12-20); Blood Urea Nitrogen 15 mg/dL (9-16); Calcium 8.3 mg/dL (8.4-10.2); Carbon Dioxide 21 mmol/L (22-29); Chloride 110 mmol/L (96-108); Creatinine Clr Calc Pharmacy 105.3; Estimated Glomerular Filt Rate > 60; Glucose Random 280 mg/dL (60-115); Potassium 4.3 mmol/L (3.3-5.1); Sodium 139 mmol/L (135-145)
[2023-09-04 07:13] LABS: Glucose, Whole Blood 233 mg/dL (60-115)
[2023-09-04] MEDS: Insulin Lispro 100 UNIT/ML 3 ML VIAL 14 UNIT SUBCUT ×2 (08:15→17:11)
[2023-09-04] MEDS: Insulin Lispro 100 UNIT/ML 3 ML VIAL SUBCUT (08:15)
[2023-09-04] MEDS: 0.9 % Sodium Chloride Flush 3 ML SYRINGE IVFLUSH ×3 (08:16→20:56)
[2023-09-04] MEDS: Acetaminophen 325 MG TABLET 650 MG PO (08:19)
[2023-09-04 08:48] LABS: Hemoglobin A1c % > 14.0 % (<6.0)
[2023-09-04 11:22] LABS: Glucose, Whole Blood 98 mg/dL (60-115)
--- NOTE | 2023-09-04 11:56 | HO.PM.IMPN ---
Subjective Subjective Date of Service: 09/04/23 Interval History: dizzy but not orthostatic BGs improved Review of Systems Review of Systems: Yes all other systems are reviewed and are negative Physical Exam Vital Signs: Vital Signs: Last Vital Signs Temp 97.7 F 09/04/23 07:13 Pulse 101 H 09/04/23 10:54 Resp 16 09/04/23 07:13 BP 110/57 L 09/04/23 10:54 Pulse Ox 96 09/04/23 07:13 O2 Del Method Room Air 09/04/23 07:13 BMI result Body Mass Index 21.1 Gen: in no acute distress HEENT: sclera anicteric, moist mucus membranes Neck: supple Lungs: clear to auscultation bilaterally Heart: regular rate and rhythm, no murmurs Abd: soft, non-tender, non-distended Ext: no edema Skin: warm/well-perfused Neuro: alert and oriented x3, no focal findings Psych: appropriate affect Objective Data Active Medications Acetaminophen (Acetaminophen 325 Mg Tablet) 650 mg PO Q6H PRN PRN Reason: Pain, Mild (Pain Scale 1-3) Last Admin: 09/04/23 08:19 Dose: 650 mg Documented By: MARCE Dextrose (Dextrose 50 % 25 Gm/50 Ml Syringe) 25 gm IVPUSH Q15M PRN; Protocol PRN Reason: per Hypoglycemia Standing Ord. Enoxaparin Sodium (Enoxaparin Sodium 40 Mg/0.4 Ml Syringe) 40 mg SUBCUT Q24H [facility] Last Admin: 09/03/23 21:00 Dose: 40 mg Documented By: TIAGO Glucose (Glucose Gel 15 Gm Gel..Gram.) 15 gm PO Q15M PRN; Protocol PRN Reason: per Hypoglycemia Standing Ord. Insulin Glargine (Insulin Glargine,Hum.Rec.Anlog 100 Unit/Ml 10 Ml Vial) 30 unit SUBCUT BEDTIME [facility] Last Admin: 09/03/23 22:57 Dose: 30 unit Documented By: TIAGO Insulin Human Lispro (Insulin Lispro 100 Unit/Ml 3 Ml Vial) 0 unit SUBCUT QIDACHS [facility]; Protocol Last Admin: 09/04/23 11:31 Dose: Not Given Documented By: MARCE Non-Admin Reason: No Insulin Coverage Insulin Human Lispro (Insulin Lispro 100 Unit/Ml 3 Ml Vial) 14 unit SUBCUT TIDAC [facility]; Protocol Last Admin: 09/04/23 11:31 Dose: Not Given Documented By: MARCE Non-Admin Reason: No Insulin Coverage Comments: POC 98 Melatonin (Melatonin 3 Mg Tablet) 6 mg PO BEDTIME PRN PRN Reason: Insomnia Ondansetron HCl (Ondansetron Hcl 4 Mg/2 Ml Vial) 4 mg IVPUSH Q8H PRN PRN Reason: Nausea and Vomiting Sodium Chloride (0.9 % Sodium Chloride Flush 3 Ml Syringe) 3 ml IVFLUSH QSHIFT [facility] Last Admin: 09/04/23 08:16 Dose: 3 ml Documented By: MARCE Labs 09/04/23 06:21 09/04/23 06:20 Labs: Laboratory Results - last 24 hr 09/03/23 09/03/23 09/03/23 17:33 17:34 17:38 MCV 88.8 MCH 30.4 MCHC 34.2 RDW 12.8 Plt Count 270 MPV 10.8 Immature Gran % (Auto) 0.5 H Neut % (Auto) 70.7 Lymph % (Auto) 20.1 [place] % (Auto) 7.5 Eos % (Auto) 0.7 Baso % (Auto) 0.5 Lymph # (Auto) 1.1 L [place] # (Auto) 0.4 Eos # (Auto) 0.0 Baso # (Auto) 0.0 Abs Immat Gran (auto) 0.03 Absolute Neuts (auto) 3.9 Absolute Nucleated RBC 0.000 Nucleated RBC % (auto) 0.0 VBG pH VBG pCO2 VBG pO2 VBG HCO3 VBG O2 Saturation VBG Base Excess Anion Gap 11 L Estim Creat Clear Calc 55.5 Estimated GFR > 60 POC Glucose Random Glucose 677 H* Estimat Average Glucose Hemoglobin A1c % Calcium 8.5 D Magnesium 2.1 Total Bilirubin 0.3 AST 11 ALT 11 Alkaline Phosphatase 169 H Troponin I High Sens < 2.7 Total Protein 6.5 Albumin 3.6 Lipase 31 Vitamin B12 Beta-Hydroxybutyrate 0.16 Urine Color Yellow Urine Appearance Clear Urine pH 6.0 Ur Specific [place] >= 1.030 H Urine Protein Negative Urine Glucose (UA) >=1000 H Urine Ketones Negative Urine Blood Negative Urine Nitrite Negative Ur Leukocyte Esterase Negative Urine RBC 0-2 Urine WBC 0-5 Ur Squamous Epith Cells 0-2 Urine Bacteria None Seen Hyaline Casts 0-2 COVID-19 (LELO) Negative COVID-19 Clin Com See Note Influenza Type A (SHERLYN) Negative Influenza Type B (SHERLYN) Negative Influenza A & B Note See Note 09/03/23 09/03/23 09/03/23 17:44 19:30 20:34 MCV MCH MCHC RDW Plt Count MPV Immature Gran % (Auto) Neut % (Auto) Lymph % (Auto) [place] % (Auto) Eos % (Auto) Baso % (Auto) Lymph # (Auto) [place] # (Auto) Eos # (Auto) Baso # (Auto) Abs Immat Gran (auto) Absolute Neuts (auto) Absolute Nucleated RBC Nucleated RBC % (auto) VBG pH VBG pCO2 VBG pO2 VBG HCO3 VBG O2 Saturation VBG Base Excess Anion Gap Estim Creat Clear Calc Estimated GFR POC Glucose 559 H* 426 H* Random Glucose Estimat Average Glucose Hemoglobin A1c % Calcium Magnesium Total Bilirubin AST ALT Alkaline Phosphatase Troponin I High Sens Total Protein Albumin Lipase Vitamin B12 1971 H Beta-Hydroxybutyrate Urine Color Urine Appearance Urine pH Ur Specific [place] Urine Protein Urine Glucose (UA) Urine Ketones Urine Blood Urine Nitrite Ur Leukocyte Esterase Urine RBC Urine WBC Ur Squamous Epith Cells Urine Bacteria Hyaline Casts COVID-19 (LELO) COVID-19 Clin Com Influenza Type A (SHERLYN) Influenza Type B (SHERLYN) Influenza A & B Note 09/03/23 09/03/23 09/04/23 20:36 22:48 06:20 MCV MCH MCHC RDW Plt Count MPV Immature Gran % (Auto) Neut % (Auto) Lymph % (Auto) [place] % (Auto) Eos % (Auto) Baso % (Auto) Lymph # (Auto) [place] # (Auto) Eos # (Auto) Baso # (Auto) Abs Immat Gran (auto) Absolute Neuts (auto) Absolute Nucleated RBC Nucleated RBC % (auto) VBG pH 7.41 VBG pCO2 36 VBG pO2 148 VBG HCO3 23 VBG O2 Saturation 99.0 VBG Base Excess -0.8 Anion Gap 12 Estim Creat Clear Calc 105.3 Estimated GFR > 60 POC Glucose 119 H Random Glucose 280 H Estimat Average Glucose Hemoglobin A1c % Calcium 8.3 L Magnesium Total Bilirubin AST ALT Alkaline Phosphatase Troponin I High Sens Total Protein Albumin Lipase Vitamin B12 Beta-Hydroxybutyrate Urine Color Urine Appearance Urine pH Ur Specific [place] Urine Protein Urine Glucose (UA) Urine Ketones Urine Blood Urine Nitrite Ur Leukocyte Esterase Urine RBC Urine WBC Ur Squamous Epith Cells Urine Bacteria Hyaline Casts COVID-19 (LELO) COVID-19 Clin Com Influenza Type A (SHERLYN) Influenza Type B (SHERLYN) Influenza A & B Note 09/04/23 09/04/23 09/04/23 06:21 07:09 11:17 MCV 88.9 MCH 30.9 MCHC 34.8 RDW 13.1 Plt Count 218 MPV 11.4 Immature Gran % (Auto) 0.5 H Neut % (Auto) 62.2 Lymph % (Auto) 29.4 [place] % (Auto) 6.9 Eos % (Auto) 0.6 Baso % (Auto) 0.4 Lymph # (Auto) 2.3 [place] # (Auto) 0.5 Eos # (Auto) 0.1 Baso # (Auto) 0.0 Abs Immat Gran (auto) 0.04 H Absolute Neuts (auto) 4.9 Absolute Nucleated RBC 0.000 Nucleated RBC % (auto) 0.0 VBG pH VBG pCO2 VBG pO2 VBG HCO3 VBG O2 Saturation VBG Base Excess Anion Gap Estim Creat Clear Calc Estimated GFR POC Glucose 233 H 98 Random Glucose Estimat Average Glucose TNP Hemoglobin A1c % > 14.0 H Calcium Magnesium Total Bilirubin AST ALT Alkaline Phosphatase Troponin I High Sens Total Protein Albumin Lipase Vitamin B12 Beta-Hydroxybutyrate Urine Color Urine Appearance Urine pH Ur Specific [place] Urine Protein Urine Glucose (UA) Urine Ketones Urine Blood Urine Nitrite Ur Leukocyte Esterase Urine RBC Urine WBC Ur Squamous Epith Cells Urine Bacteria Hyaline Casts COVID-19 (LELO) COVID-19 Clin Com Influenza Type A (SHERLYN) Influenza Type B (SHERLYN) Influenza A & B Note Assessment and Plan (1) Uncontrolled diabetes mellitus with hyperglycemia: Status: Acute Plan d2 62yo M with completely uncontrolled DM2 [A1c >14] sent in from PCP's office due to severe, symptomtic hyperglycemia, though not in DKA. Also dizzy. uncontrolled DM2 with hyperglycemia - BG normalizing on his home regimen raising question of compliance. continue basal-bolus insulin dizziness - orthostatics negative. PT eval VTE ppx - LMWH dispo - TBD In my clinical judgment, the patient requires continued inpatient hospitalization for the following reasons: placement Total time managing care of this patient today: 35 minutes. Quality Stroke Does the patient have a stroke diagnosis?: No VTE Prior VTE?: No VTE Risk Level:: Medical - moderate - high VTE Device Contraindication: Treatment Not Indicated VTE Drug Contraindication: N/A - Med Ordered
--- NOTE | 2023-09-04 12:42 | MHC.CM.PN ---
[place] 09/04/23 Patient lives by himself. He is independent with all functional mobility. He does not require an AD. He was provided the [address] [place] [id number] and Family Resource Guide. [facility] referral was made, for +[facility] assessment. DP Home with services. Patient will need assist with transportation.
[2023-09-04 16:31] LABS: Glucose, Whole Blood 256 mg/dL (60-115)
[2023-09-04] MEDS: Enoxaparin Sodium 40 MG/0.4 ML SYRINGE SUBCUT (19:36)
[2023-09-04 20:38] LABS: Glucose, Whole Blood 94 mg/dL (60-115)
[2023-09-04] MEDS: Insulin Glargine,Hum.rec.anlog 100 UNIT/ML 10 ML VIAL 30 UNIT SUBCUT (20:55)
[2023-09-05 03:21] VITALS: BP 120/74; PULSE 84; RESP 16; TEMP 36.2; O2SAT 96
[2023-09-05 07:46] LABS: Glucose, Whole Blood 117 mg/dL (60-115)
[2023-09-05 08:00] VITALS: BP 127/71; PULSE 81; RESP 17; TEMP 36.5; O2SAT 95
[2023-09-05] MEDS: 0.9 % Sodium Chloride Flush 3 ML SYRINGE IVFLUSH (08:40)
[2023-09-05] MEDS: Insulin Lispro 100 UNIT/ML 3 ML VIAL 14 UNIT SUBCUT ×2 (08:40→12:35)
[2023-09-05 11:07] LABS: Glucose, Whole Blood 170 mg/dL (60-115)
--- NOTE | 2023-09-05 12:24 | P.DS_ITS ---
DS: Providers Provider Date of Service: 09/05/23 Date of admission: 09/03/23 19:22 Date of discharge: 09/05/23 Primary care physician: Palmer Hernández MD DS: Diagnosis Discharge Diagnosis (1) Uncontrolled diabetes mellitus with hyperglycemia: Status: Acute (2) Dizziness: Status: Acute DS: Summary Hospital Course Hospital Course: From the history and physical by the admitting hospitalist, Rosangela Alfred MD, 09/03/23: This is a 62-year-old male with pertinent history of insulin-dependent diabetes mellitus, essential hypertension who was sent to the emergency department for evaluation of elevated blood glucose. Patient states he went to his PCP's office today and his blood sugar was found to be elevated and he was sent to the ER. Does endorse increased thirst and frequent urination. Patient states he is compliant with his home insulin but is unable to elaborate his regimen. He seems confused between short-acting and long-acting insulin and the amount of units he is taking. Patient also complains of dizziness when he tries to get up and sensation that he would pass out. No fever, chills, chest discomfort, vomiting, shortness of breath, palpitations, abdominal pain, changes in bowel habits. In the emergency department, patient's blood glucose found to be significantly elevated 62yo M with completely uncontrolled DM2 [A1c >14] sent in from PCP's office due to severe, symptomtic hyperglycemia, though not in DKA. Also complianed of dizziness but was not orthostatic. Blood glucose normalized on his home regimen raising question of compliance. The importance of adherence and of following up closely with his PCP was counseled. He was seen by PT and not felt to require further services. Time Attestation Discharge coordination time: Greater than 30 minutes Quality: Safe Use of Opioids Does Pt have an Active Cancer Diagnosis on the Problem List?: No Quality: Stroke Does the patient have a stroke diagnosis?: No Physical Exam Vital Signs: Vital Signs: Last Vital Signs Temp 97.7 F 09/05/23 08:00 Pulse 81 09/05/23 08:00 Resp 17 09/05/23 08:00 BP 127/71 09/05/23 08:00 Pulse Ox 95 09/05/23 08:00 O2 Del Method Room Air 09/05/23 08:00 BMI result Body Mass Index 21.1 Gen: in no acute distress HEENT: sclera anicteric, moist mucus membranes Neck: supple Lungs: clear to auscultation bilaterally Heart: regular rate and rhythm, no murmurs Abd: soft, non-tender, non-distended Ext: no edema Skin: warm/well-perfused Neuro: alert and oriented x3, no focal findings Psych: appropriate affect DS: Data Data Completed and Pending Completed studies during hospitalization [Text1]: Laboratory Results WBC 7.8 X10*3/uL (4.8-10.8) 09/04/23 06:21 RBC 4.14 X10*6/uL (4.60-5.80) L 09/04/23 06:21 Hgb 12.8 g/dl (14.0-18.0) L 09/04/23 06:21 Hct 36.8 % (42.0-52.0) L 09/04/23 06:21 MCV 88.9 fL (80.0-98.0) 09/04/23 06:21 MCH 30.9 pg (27.0-33.0) 09/04/23 06:21 MCHC 34.8 g/dl (31.0-36.0) 09/04/23 06:21 RDW 13.1 % (11.0-16.0) 09/04/23 06:21 Plt Count 218 X10*3/uL (160-400) 09/04/23 06:21 MPV 11.4 fL (9.4-12.4) 09/04/23 06:21 Immature Gran % (Auto) 0.5 % (0.0-0.4) H 09/04/23 06:21 Neut % (Auto) 62.2 % (45-73) 09/04/23 06:21 Lymph % (Auto) 29.4 % (20-40) 09/04/23 06:21 [place] % (Auto) 6.9 % (2-11) 09/04/23 06:21 Eos % (Auto) 0.6 % (0-4) 09/04/23 06:21 Baso % (Auto) 0.4 % (0-2) 09/04/23 06:21 Lymph # (Auto) 2.3 X10*3/uL (1.2-4.9) 09/04/23 06:21 [place] # (Auto) 0.5 X10*3/uL (0.1-1.2) 09/04/23 06:21 Eos # (Auto) 0.1 X10*3/uL (0.0-0.4) 09/04/23 06:21 Baso # (Auto) 0.0 X10*3/uL (0.0-0.2) 09/04/23 06:21 Abs Immat Gran (auto) 0.04 X10*3/uL (0.00-0.03) H 09/04/23 06:21 Absolute Neuts (auto) 4.9 x10*3/uL (2.0-8.3) 09/04/23 06:21 Absolute Nucleated RBC 0.000 X10*3/uL (0.0-0.012) 09/04/23 06:21 Nucleated RBC % (auto) 0.0 /100WBC (0.0-0.2) 09/04/23 06:21 VBG pH 7.41 (7.32-7.43) 09/03/23 20:36 VBG pCO2 36 mmHg 09/03/23 20:36 VBG pO2 148 mmHg 09/03/23 20:36 VBG HCO3 23 mmol/L (22-26) 09/03/23 20:36 VBG O2 Saturation 99.0 % 09/03/23 20:36 VBG Base Excess -0.8 mmol/L 09/03/23 20:36 Sodium 139 mmol/L (135-145) 09/04/23 06:20 Potassium 4.3 mmol/L (3.3-5.1) 09/04/23 06:20 Chloride 110 mmol/L (96-108) H 09/04/23 06:20 Carbon Dioxide 21 mmol/L (22-29) L 09/04/23 06:20 Anion Gap 12 (12-20) 09/04/23 06:20 BUN 15 mg/dL (9-16) 09/04/23 06:20 Creatinine 0.60 mg/dL (0.5-1.4) 09/04/23 06:20 Estim Creat Clear Calc 105.3 09/04/23 06:20 Estimated GFR > 60 09/04/23 06:20 POC Glucose 170 mg/dL (60-115) H 02/14/24 11:03 Random Glucose 280 mg/dL (60-115) H 09/04/23 06:20 Estimat Average Glucose TNP 09/04/23 06:21 Hemoglobin A1c % > 14.0 % (<6.0) H 09/04/23 06:21 Calcium 8.3 mg/dL (8.4-10.2) L 09/04/23 06:20 Magnesium 2.1 mg/dL (1.6-2.6) 09/03/23 17:33 Total Bilirubin 0.3 mg/dL (0.0-1.0) 09/03/23 17:33 AST 11 U/L (5-37) 09/03/23 17:33 ALT 11 U/L (0-40) 09/03/23 17:33 Alkaline Phosphatase 169 U/L (39-117) H 09/03/23 17:33 Troponin I High Sens < 2.7 ng/L (<3.5-35.0) 09/03/23 17:33 Total Protein 6.5 g/dL (6.5-8.0) 09/03/23 17:33 Albumin 3.6 g/dL (3.5-5.0) 09/03/23 17:33 Lipase 31 U/L (8-78) 09/03/23 17:33 Vitamin B12 1971 pg/mL (200-900) H 09/03/23 20:34 Beta-Hydroxybutyrate 0.16 mmol/L (0.02-0.27) 09/03/23 17:33 Urine Color Yellow 09/03/23 17:33 Urine Appearance Clear 09/03/23 17:33 Urine pH 6.0 (5.0-9.0) 09/03/23 17:33 Ur Specific [place] >= 1.030 (1.005-1.025) H 09/03/23 17:33 Urine Protein Negative mg/dL (Neg-Trace) 09/03/23 17:33 Urine Glucose (UA) >=1000 mg/dL (Negative) H 09/03/23 17:33 Urine Ketones Negative mg/dL (Negative) 09/03/23 17:33 Urine Blood Negative (Negative) 09/03/23 17:33 Urine Nitrite Negative (Negative) 09/03/23 17:33 Ur Leukocyte Esterase Negative (Negative) 09/03/23 17:33 Urine RBC 0-2 /HPF (0-2) 09/03/23 17:33 Urine WBC 0-5 /HPF (0-5) 09/03/23 17:33 Ur Squamous Epith Cells 0-2 /HPF (0-2) 09/03/23 17:33 Urine Bacteria None Seen (None Seen) 09/03/23 17:33 Hyaline Casts 0-2 /LPF (0-2) 09/03/23 17:33 COVID-19 (LELO) Negative (Negative) 09/03/23 17:33 COVID-19 Clin Com See Note 09/03/23 17:33 Influenza Type A (SHERLYN) Negative (Negative) 09/03/23 17:38 Influenza Type B (SHERLYN) Negative (Negative) 09/03/23 17:38 Influenza A & B Note See Note 09/03/23 17:38 Discharge Plan Discharge Anticipated Discharge Date/Time: 09/05/23 12:17 Patient Disposition: Home, Self-Care Discharge Diagnosis: uncontrolled diabetes dizziness Referrals: Palmer Hernández MD [Physician] - 1 Week Discharge Medications: Continued insulin glargine [Lantus U-100 Insulin] 100 unit/mL Solution 30 unit SUBCUT BEDTIME insulin lispro [Humalog U-100 Insulin] 100 unit/mL Solution 14 unit subcut TIDAC Protocol: Insulin Correction Scale Less than or equal to 110 ---- Give (units): 0 111 to 150 Give (units): 0 151 to 200 Give (units): 2 201 to 250 Give (units): 4 251 to 300 Give (units): 6 301 to 350 Give (units): 8 Greater than 350 Give (units): 10 Call if Blood Glucose > : 350 Trulicity 0.75 mg/0.5 mL pen injector 0.75 mg subcut [place] Discharge Orders: Discharge Order (Routine); Ordered 09/05/23 Ordered By: Lianna Patton Diet: Diabetic diet Activity on Discharge: As tolerated Stand Alone Forms: Patient Portal Discharge page Care Plan Goals: avoid complications of diabetes Health Concerns: uncontrolled diabetes dizziness Plan of Treatment: take insulin as prescribed strict diabetic diet outpatient physical therapy Please follow up with your primary care doctor within 1 week. Return to the hospital if you experience recurrent or worsening symptoms. Assessment: See Discharge Summary.
--- NOTE | 2023-09-05 12:31 | MHC.CM.PN ---
Addendum entered by Meka Christopher 09/05/23 14:30: A person came in to see the patient. She does not have transportation home. Bus passes were provided to the patient for transport home. Original Note: Patient is discharged to home self care. He has arranged for transport home.
== END 2023-09-05 13:30 | disposition home or self-care (01) | DRG 420 ==
LOC: HO.ED 17:58 → HO.EDOVER 22:53 → HO.S3 09-04 00:18 → HO.EDOVER 09-04 08:25 → HO.S3 09-04 08:25
PROVIDERS: Nurse Practitioner Family; Admitting Provider Student in an Organized Health Care Education/Training Program; Emergency Provider Emergency Medicine; PCP Internal Medicine Geriatric Medicine; Visit Provider Family Medicine
DX: E11.65 Type 2 diabetes mellitus with hyperglycemia (principal); E78.2 Mixed hyperlipidemia; I10 Essential (primary) hypertension; I95.1 Orthostatic hypotension; Z20.822 Contact with and (suspected) exposure to COVID-19; Z79.4 Long term (current) use of insulin; Z79.85 Long-term (current) use of injectable non-insulin antidiabetic drugs
CPT/HCPCS: 36415; 80048; 80053; 81001; 82010; 82607; 82803; 82947; 83036; 83690; 83735; 84484; 85025; 87502; 87635; 97116; 97162; 99285; J1650; J7120

== ENCOUNTER → 2023-09-03 19:22 | Outpatient (BNV) | payer SELFPAY | PROVIDERS: Admitting Provider Student in an Organized Health Care Education/Training Program; Emergency Provider Emergency Medicine; Visit Provider Student in an Organized Health Care Education/Training Program | DX: E11.65 Type 2 diabetes mellitus with hyperglycemia (principal) | CPT/HCPCS: 99223; 99232; 99238 ==

== ENCOUNTER 2023-10-29 09:28 | Outpatient (REF) | payer MEDICAID, SELFPAY ==
[2023-10-29 12:36] LABS: Alanine Aminotransferase 15 U/L (0-40); Albumin Level 3.9 g/dL (3.5-5.0); Alkaline Phosphatase 108 U/L (39-117); Anion Gap 8 (12-20); Aspartate Amino Transferase 14 U/L (5-37); Bilirubin Direct 0.1 mg/dL (0.0-0.5); Bilirubin Total 0.4 mg/dL (0.0-1.0); Blood Urea Nitrogen 12 mg/dL (9-16); Calcium 9.1 mg/dL (8.4-10.2); Carbon Dioxide 28 mmol/L (22-29); Chloride 106 mmol/L (96-108); Cholesterol 211 mg/dL (<200); Estimated Glomerular Filt Rate > 60; Glucose Random 289 mg/dL (60-115); HDL Cholesterol 62 mg/dL (>40); LDL Cholesterol Calculated 111 mg/dL (<100); Potassium 4.4 mmol/L (3.3-5.1); Sodium 138 mmol/L (135-145); Total Protein 7.1 g/dL (6.5-8.0); Triglycerides 193 mg/dL (<150)
== END 2023-10-29 09:29 | disposition home or self-care (01) ==
LOC: HO.HHCL 09:28
PROVIDERS: Visit Provider Internal Medicine Geriatric Medicine
DX: E11.65 Type 2 diabetes mellitus with hyperglycemia (principal); Z79.4 Long term (current) use of insulin
CPT/HCPCS: 36415; 80048; 80061; 80076

== ENCOUNTER 2024-06-02 09:32 | Outpatient (REF) | payer MEDICAID, SELFPAY ==
[2024-06-02 11:31] LABS: Alanine Aminotransferase 15 U/L (0-40); Alkaline Phosphatase 110 U/L (39-117); Anion Gap 10 (12-20); Aspartate Amino Transferase 20 U/L (5-37); Bilirubin Direct 0.2 mg/dL (0.0-0.5); Bilirubin Total 0.6 mg/dL (0.0-1.0); Blood Urea Nitrogen 18 mg/dL (9-16); Calcium 9.3 mg/dL (8.4-10.2); Carbon Dioxide 27 mmol/L (22-29); Chloride 106 mmol/L (96-108); Cholesterol 195 mg/dL (<200); Estimated Glomerular Filt Rate > 60; Glucose Random 219 mg/dL (60-115); HDL Cholesterol 61 mg/dL (>40); LDL Cholesterol Calculated 117 mg/dL (<100); Potassium 4.1 mmol/L (3.3-5.1); Sodium 139 mmol/L (135-145); Total Protein 7.2 g/dL (6.5-8.0); Triglycerides 89 mg/dL (<150)
[2024-06-02 11:48] LABS: Creatinine Urine 92.15 mg/dL; Microalbum/Creatinine Ratio Ur 75.9 ug/mg cr (<30)
[2024-06-02 11:57] LABS: Vitamin B12 554 pg/mL (200-900)
== END 2024-06-02 09:33 | disposition home or self-care (01) ==
LOC: HO.HHCL 09:32
PROVIDERS: Visit Provider Internal Medicine Geriatric Medicine
DX: E11.65 Type 2 diabetes mellitus with hyperglycemia (principal); Z79.4 Long term (current) use of insulin
CPT/HCPCS: 36415; 80048; 80061; 80076; 82043; 82570; 82607

== ENCOUNTER 2024-11-17 10:23 | Outpatient (REF) | payer MEDICAID, SELFPAY ==
[2024-11-17 11:46] LABS: Anion Gap 12 (12-20); Blood Urea Nitrogen 21 mg/dL (9-16); Calcium 9.3 mg/dL (8.4-10.2); Carbon Dioxide 24 mmol/L (22-29); Chloride 104 mmol/L (96-108); Estimated Glomerular Filt Rate > 60; Glucose Random 306 mg/dL (60-115); Potassium 4.4 mmol/L (3.3-5.1); Sodium 136 mmol/L (135-145)
--- OUTSIDE RECORDS SUMMARY | 2024-11-17 12:07 | XMS_ITS | Encounter Summary ---
Author Organization [employer] Address [address] [facility] [address] [place] [address] Care Team Providers Care Host/Hostess Restaurant Name Role Phone Name, Palmer BERMUDEZ Primary Care Provider [phone] Jes Olsen PharmD Unavailable [phone] Reason for Visit * Reason Onset Date Comments Returning Call 04/21/2024 Encounter Details Date Type Department Care Team ([facility] st Contact Info) Description 04/21/2024 Telephone [facility] MED[facility]INE [address] [place], [place] [id number] Name, MD Plamer [address] [place] [address] Returning Call Social History Tobacco Use Types Packs/Day Years Used Date Smoking Tobacco: Never Smokeless Tobacco: Never Alcohol Use Standard Drinks/Week Comments Yes 0 (1 standard drink = 0.6 oz pur e alcohol) occassional Depression Answer Date Recorded Patient Health Questionnaire-9 Score 3 09/12/2023 Patient Health Questionnaire-9 Score 3 09/12/2023 Last PHQ-9: Questionnaire Data Not on file 0 09/12/2023 Housing Stability Answer Date Recorded What is your housing situation today? I have heaven page 06/18/[address] you li ve. Do you have problems with any of the following? None of the above 06/18/2023 Food Insecurity Answer Date Recorded Within the past 12 months, y ou worried that your food would run out before you got money to buy more: Never True 09/07/2023 Within the past 12 months,th e food you bought just didn't last and you didn't have enough money to get more: Never True Transportation Answer Date Recorded In the past 12 months, has l ack of transportation kept you from medical appts, meetings, work or from getting things needed for daily living? No 06/18/2023 Utilities Answer Date Recorded In the past 12 months, has t he electric, gas, oil or water company threatened to shut off services in your home? No 06/18/2023 Depression Answer Date Recorded Patient Health Questionnaire-2 Score 1 09/12/2023 Sex and Gender Information Value Date Recorded Sex Assigned at Male 05/22/2022 10:29 AM EDT Legal Sex Male 10:29 AM EDT Gender Identity Male 05/22/2022 10:29 AM EDT Sexual Orientation Choose not to disclose 2021 10:29 AM EDT documented as of this encounter Miscellaneous Notes * Telephone Encounter - Jonh Sanchez - 04/21/2024 3:53 PM EDT Tc from pt stated he received a call but chief writer did not see anything documented. documented in this encounter Plan of Treatment Upcoming Encounters Date Type Department Care Team (Late st Contact Info) Description 11/24/2024 11:30 AM EDT Medication Management [facility] MED[facility]INE [address] [place] [address] Jes Olsen PharmD [address] [place] [address] documented as of this encounter Goals Goal Patient Goal Type Associated Problems Recent Progress Patient-Stated? Author Record your blood sugar as directed Result Component No Jes Olsen, PharmD Note: Use CGM, ensuring sensor is scanned at least once every 8 hours to capture 24H data. Check BG manually, as directed. Hemoglobin A1c < 7 Result Component 12.3(11/04/19 25 4:07 PM EDT) No LuisiaEdiliasa, PharmD documented as of this encounter Visit Diagnoses Not on filedocumented in this encounter Additional Health Concerns Assessment Noted Time PHQ-9 Depression Total Score: 3 09/12/19 24 9:02 AM EST documented as of this encounter Care Teams Host/Hostess Restaurant Relationship Specialty Start Date End Date Name, MD Palmer [address] [place] [address] PCP - General Family Medicine 12/14/15 Jes Olsen, LexieD [address] [place] [address] Pharmacist Internal Medicine 08/13/23 documented as of this encounter
--- OUTSIDE RECORDS SUMMARY | 2024-11-17 12:07 | XMS_ITS | Encounter Summary ---
Author Organization [employer] Address [address] [facility] [address] [place] [address] Care Team Providers Care Whale Trainer Name Role Phone Name, Palmer BERMUDEZ Primary Care Provider [phone] Jes Olsen PharmD Unavailable [phone] Encounter Details Date Type Department Care Team (Latest Contact Info) Description 11/17/2024 Travel Social History Tobacco Use Types Packs/Day Years Used Date Smoking Tobacco: Never Passive Smoke Exposure: Never Smokeless Tobacco: Never Alcohol Use Standard Drinks/Week Comments Yes 0 (1 standard drink = 0.6 oz pur e alcohol) occassional Depression Answer Date Recorded Patient Health Questionnaire-9 Score 11 11/03/2024 Patient Health Questionnaire-9 Score 11 11/03/2024 Last PHQ-9: Questionnaire Data Not on file 0 11/03/2024 Housing Stability Answer Date Recorded What is your housing situation today? I have heavenart[employer] page 11/03/[address] you li ve. Do you have problems with any of the following? None of the above 11/03/2024 Food Insecurity Answer Date Recorded Within the past 12 months, y ou worried that your food would run out before you got money to buy more: Often true 11/03/2024 Within the past 12 months,th e food you bought just didn't last and you didn't have enough money to get more: Often true Transportation Answer Date Recorded In the past 12 months, has l ack of transportation kept you from medical appts, meetings, work or from getting things needed for daily living? Yes, it has kept me from medical appointments or getting medications. 11/03/2024 Utilities Answer Date Recorded In the past 12 months, has t he electric, gas, oil or water company threatened to shut off services in your home? Yes 11/03/2024 Depression Answer Date Recorded Patient Health Questionnaire-2 Score 3 11/03/2024 Internet Access Answer Date Recorded Internet Access Q1 No 11/03/2024 Internet Access Q2 I cannot afford it 11/03/2024 Sex and Gender Information Value Date Recorded Sex Assigned at Male 05/22/2022 10:29 AM EDT Legal Sex Male 10:29 AM EDT Gender Identity Male 05/22/2022 10:29 AM EDT Sexual Orientation Choose not to disclose 2021 10:29 AM EDT documented as of this encounter Plan of Treatment Upcoming Encounters Date Type Department Care Team (Late st Contact Info) Description 11/24/2024 11:30 AM EDT Medication Management [facility] MEDICINE [address] [place], [place] [phone] Jes Olsen, PharmD [address] [place] [address] documented as of this encounter Goals Goal Patient Goal Type Associated Problems Recent Progress Patient-Stated? Author Record your blood sugar as directed Result Component No PuiaJohnJes, PharmD Note: Use CGM, ensuring sensor is scanned at least once every 8 hours to capture 24H data. Check BG manually, as directed. Hemoglobin A1c < 7 Result Component 12.3(11/04/19 25 4:07 PM EDT) No Puia, Jes, PharmD documented as of this encounter Visit Diagnoses Not on filedocumented in this encounter Additional Health Concerns Assessment Noted Time PHQ-9 Depression Total Score: 11 025 4:11 PM EDT documented as of this encounter Care Teams Whale Trainer Relationship Specialty Start Date End Date Name, MD Palmer [address] [place] [address] [phone] PCP - General Family Medicine 12/14/15 Jes Olsen, PharmD [address] [place] [address] [phone] Pharmacist Internal Medicine 08/13/23 documented as of this encounter
--- OUTSIDE RECORDS SUMMARY | 2024-11-17 12:07 | XMS_ITS | Encounter Summary ---
Author Organization [employer] Address [address] [facility] 7[address] [place] [address] Care Team Providers Care Hydrology Professor Name Role Phone Name, Palmer BERMUDEZ Primary Care Provider [phone] Jes Olsen PharmD Unavailable [phone] Reason for Visit * Reason Comments Med Refill Encounter Details Date Type Department Care Team ([facility] st Contact Info) Description 01/08/2024 Refill [facility] MEDICINE [address] [place], [place] [phone] Jes Olsen, PharmD [address] [place] [address] Type 2 diabetes mellitus with hyperglycemia, with long-term current use of insulin ([facility]) Social History Tobacco Use Types Packs/Day Years [...] Description 11/24/2024 11:30 AM EDT Medication Management [facility] [address] [place] [address] Jes Olsen, PharmD [address] [place] [address] documented as of this encounter Goals Goal Patient Goal Type Associated Problems Recent Progress Patient-Stated? Author Record your blood sugar as directed Result Component No Jes Olsen, PharmD Note: Use CGM, ensuring sensor is scanned at least once every 8 hours to capture 24H data. Check BG manually, as directed. Hemoglobin A1c < 7 Result Component 12.3(11/04/19 25 4:07 PM EDT) No Jes Olsen, PharmD documented as of this encounter Visit Diagnoses Diagnosis Type 2 diabetes mellitus with hyperglycemia, with long-term current use of insulin ([facility]) documented in this encounter Additional Health Concerns Assessment Noted Time PHQ-9 Depression Total Score: 3 09/12/19 24 9:02 AM EST documented as of this encounter Care Teams Hydrology Professor Relationship Specialty Start Date End Date Name, MD Palmer [address] [place] [address] PCP - General Family Medicine 12/14/15 Jes Olsen, PharmD [address] [place] [phone] Pharmacist Internal Medicine 08/13/23 documented as of this encounter
--- OUTSIDE RECORDS SUMMARY | 2024-11-17 12:07 | XMS_ITS | Encounter Summary ---
Author Organization [employer] [facility] Address [address] [facility] [address] [place] [address] Care Team Providers Care Post Adoption Coordinator Name Role Phone Name, Palmer BERMUDEZ Primary Care Provider [phone] Jes Olsen PharmD Unavailable [phone] Encounter Details Date Type Department Care Team (Latest Contact Info) Description 10/08/2018 Abstract [facility] CONVERSIONS Dental, Provider, DDS Social History Tobacco Use Types Packs/Day Years Used Date Smoking Tobacco: Never Assessed Sex and Gender Information Value Date Recorded [...] Description 11/24/2024 11:30 AM EDT Medication Management [facility] MEDICINE [address] [place] [address] PuiaJohnJes, PharmD [address] [place] [address] documented as of this encounter Visit Diagnoses Not on filedocumented in this encounter Care Teams Post Adoption Coordinator Relationship Specialty Start Date End Date Name, MD Palmer [address] [place] [address] PCP - General Family Medicine 12/14/15 PuiaJohnJes, PharmD [address] [place] [address] Pharmacist Internal Medicine 08/13/23 documented as of this encounter
--- OUTSIDE RECORDS SUMMARY | 2024-11-17 12:07 | XMS_ITS | Clinical Summary ---
Author Organization [employer] [facility] Address [address] [place] [address] Care Team Providers Care Mmi Teacher Name Role Phone Name, Palmer BERMUDEZ Primary Care Provider Jes Olsen PharmD Unavailable [phone] Allergies No known active allergies Medications TRUEplus Lancets 33G miscIndicatio ns:Type 2 diabetes mellitus with hyperglycemia , with long-term current use of insulin ([facility]) Use to test blood sugar 4 time(s) daily 100 each 024 Active Continuous Glucose Wallpaper Cleaner (FreeStyle Ayse 3 [place]) deviceIndicat ions:Type 2 diabetes mellitus with hyperglycemia , with long-term current use of insulin ([facility]) 1 each every 8 (eight) hours. Use to scan CGM sensor at least once Q8H, as directed. 1 each 024 Active Continuous Glucose Sensor (FreeStyle Ayse 3 Sensor) miscIndicatio ns:Type 2 diabetes mellitus with hyperglycemia , with long-term current use of insulin ([facility]) 1 each every 14 (fourteen) days. Apply 1 sensor, as directed, every 14 days for CGM. 2 each 11 024 Active Blood Pressure kitIndication s:Type 2 diabetes mellitus with hyperglycemia , with long-term current use of insulin ([facility]),Diz ziness Use as directed once daily to check home BP 1 kit 024 Active Tirzepatide (Mounjaro) 12.5 MG/0.5ML solution auto-injector Indications:T ype 2 diabetes mellitus with hyperglycemia , with long-term current use of insulin ([facility]) Inject 12.5 mg under the skin 1 (one) time per week. 2 mL Active losartan (Cozaar) 25 MG tablet TAKE 1 TABLET BY MOUTH EVERY MORNING 90 tablet 1 Active Multiple Vitamin (Multivitamin ) tablet TAKE 1 TABLET BY MOUTH EVERY MORNING 90 tablet 1 Active insulin pen needle (UltiCare Micro Pen [place]) 32G x 4 mm miscIndicatio ns:Type 2 diabetes mellitus with hyperglycemia , with long-term current use of insulin ([facility]) Use as directed to inject insulin 4 times daily 200 each Active atorvastatin (Lipitor) 80 MG tabletIndicat ions:Type 2 diabetes mellitus with hyperglycemia , with long-term current use of insulin ([facility]) Take 1 tablet (80 mg) by mouth Once per day. 90 tablet Active Aspirin EC Adult Low Dose 81 MG EC tabletIndicat ions:Type 2 diabetes mellitus with hyperglycemia , with long-term current use of insulin ([facility]) TAKE 1 TABLET BY MOUTH EVERY MORNING 90 tablet 3 Active metFORMIN XR (Glucophage-X R) 750 MG 24 hr tabletIndicat ions:Type 2 diabetes mellitus with hyperglycemia , with long-term current use of insulin ([facility]) Take 1 tablet (750 mg) by mouth with breakfast. Do not crush, chew, or split. 30 tablet 2025 Active insulin degludec (Tresiba FlexTouch) 200 UNIT/ML injectionIndi cations:Type 2 diabetes mellitus with hyperglycemia , with long-term current use of insulin ([facility]) Inject 16 Units under the skin in the morning. Increase, as directed, to max of 28 units per day 15 mL 025 Active insulin lispro (HumaLOG KWIKPEN) 200 UNIT/ML solution pen-injector penIndication s:Type 2 diabetes mellitus with hyperglycemia , with long-term current use of insulin ([facility]) INJECT 14 UNITS SUBCUTANEOUSLY THREE TIMES DAILY WITH MEALS. Increase as directed to max of 22 units with each meal. 24 mL 025 Active metFORMIN XR (Glucophage-X R) 750 MG 24 hr tabletIndicat ions:Type 2 diabetes mellitus with hyperglycemia , with long-term current use of insulin ([facility]) Take 2 tablets (1,500 mg) by mouth with breakfast. Do not crush, chew, or split. 60 tablet 11 024 2024 Discontinued(R eorder (will not trigger notification to Pharmacy)) glipiZIDE XL (Glucotrol XL) 10 MG 24 hr tabletIndicat ions:Type 2 diabetes mellitus with hyperglycemia , with long-term current use of insulin ([facility]) TAKE 1 TABLET BY MOUTH EVERY MORNING 90 tablet 1 2024 Discontinued(T herapy completed) pioglitazone (Actos) 30 MG tabletIndicat ions:Type 2 diabetes mellitus with hyperglycemia , with long-term current use of insulin ([facility]) TAKE 1 TABLET BY MOUTH EVERY MORNING 30 tablet 2024 Discontinued(T herapy completed) insulin degludec (Tresiba FlexTouch) 200 UNIT/ML injectionIndi cations:Type 2 diabetes mellitus with hyperglycemia , with long-term current use of insulin ([facility]) Inject 108 Units under the skin at bedtime. 18 mL 025 2024 Discontinued(R eorder (will not trigger notification to Pharmacy)) insulin lispro (HumaLOG KWIKPEN) 200 UNIT/ML solution pen-injector penIndication s:Type 2 diabetes mellitus with hyperglycemia , with long-term current use of insulin ([facility]) INJECT 60 UNITS SUBCUTANEOUSLY THREE TIMES DAILY WITH MEALS 24 mL 025 2024 Discontinued(R eorder (will not trigger notification to Pharmacy)) insulin lispro (HumaLOG KWIKPEN) 200 UNIT/ML solution pen-injector penIndication s:Type 2 diabetes mellitus with hyperglycemia , with long-term current use of insulin ([facility]) INJECT 10 UNITS SUBCUTANEOUSLY THREE TIMES DAILY WITH MEALS 24 mL 025 2024 Discontinued(R eorder (will not trigger notification to Pharmacy)) insulin degludec (Tresiba FlexTouch) 200 UNIT/ML injectionIndi cations:Type 2 diabetes mellitus with hyperglycemia , with long-term current use of insulin ([facility]) Inject 10 Units under the skin at bedtime. 18 mL 025 2024 Discontinued(R eorder (will not trigger notification to Pharmacy)) Active Problems Problem Noted Date Diagnosed Date Dizziness 11/12/2023 Periodontal disease 10/01/2023 Dental calculus 10/01/2023 Missing teeth, acquired 10/01/2023 Localized gingival recession 10/01/2023 Halitosis 10/01/2023 Tipped teeth 08/20/2023 Pericoronitis 08/20/2023 Excessive attrition of teeth, limited to enamel 08/20/2023 History of COVID-19 06/25/2023 06/25/2023 Polyneuropathy due to type 2 diabetes mellitus 1 08/26/2022 06/25/2023 Uncontrolled diabetes mellitus with hyperglycemi a 06/25/2023 06/25/2023 Diabetic retinopathy associa ana rosa with type 2 diabetes mellitus 06/25/2023 Reduced visual acuity 12/04/2017 06/25/2023 Encounters Date Type Department Care Team Description 11/17/2024 Travel 11/04/2024 Patient Outreach [facility] [address] [place] [phone] Palmer Hernández MD Care Coordination ([facility] outreach for SDOH food needs-referral completed /) 11/03/2024 3:45 PM EDT Office Visit [facility] [address] [place] [phone] Palmer Hernández MD Type 2 diabetes mellitus with hyperglycemia, with long-term current use of insulin ([facility]) (Primary Dx) 11/03/2024 Travel 10/30/2024 Telephone [facility] [address] [place] [phone] Jay Jay Fonseca MA chartprep 10/27/2024 Travel 10/20/2024 Travel 10/11/2024 Refill [facility] [address] [place] [address] Jes Olsen PharmD Type 2 diabetes mellitus with hyperglycemia, with long-term current use of insulin (CMS/HCC) 10/04/2024 Refill [facility] [address] [place] [address] Jes Olsen PharmD Type 2 diabetes mellitus with hyperglycemia, with long-term current use of insulin (CMS/HCC) 09/29/2024 Refill [facility] [address] [place] [address] Jes Olsen, LexieD Type 2 diabetes mellitus with hyperglycemia, with long-term current use of insulin ([facility]) 09/17/2024 Telephone [facility] [address] [place] [address] Name, MD Palmer chartprep from Last 3 Months Immunizations Name Administration Dates Next Due Hep B, adult 07/10/2016,01/27/2016,12/01/2015 Influenza injectable quadriv alent IIV4 with preservative 05/21/2018,05/10/2017,04/10/2016 Influenza injectable quadriv alent preservative free 06/25/2023,09/09/2021,04/18/2021,09/15 Pneumococcal Conjugate PCV 20 06/25/2023 Pneumococcal Polysaccharide PPSV23 07/27/2017, RSV Bivalent 08/13/2023 TD (adult), 2 Lf tetanus tox oid, preservative free, adsorbed 12/01/2015 Tdap 09/24/2018 Zoster, Recombinant 08/13/2023,07/27/2023,2022 Social History Tobacco Use Types Packs/Day Years Used Date Smoking Tobacco: Never Passive Smoke Exposure: Never Smokeless Tobacco: Never Tobacco Cessation:Counseling Given: Not Answered Alcohol Use Standard Drinks/Week Comments Yes 0 (1 standard drink = 0.6 oz pur e alcohol) occassional Depression Answer Date Recorded Patient Health Questionnaire-9 Score 11 11/03/2024 Patient Health Questionnaire-9 Score 11 11/03/2024 Last PHQ-9: Questionnaire Data Not on file 0 11/03/2024 Housing Stability Answer Date Recorded What is your housing situation today? I have [facility] 11/03/[address] you [...] not to disclose 2021 10:29 AM EDT Last Filed Vital Signs Vital Sign Reading Time Taken Comments Blood Pressure 114/63 11/03/2024 4:04 PM EDT Pulse 88 11/03/2024 4:04 PM EDT Temperature 36.6 ??C (97.9 ??F) 11/03/2024 4:04 PM ED T Respiratory Rate 16 11/03/2024 4:04 PM EDT Oxygen Saturation 95% 11/03/2024 4:04 PM EDT Inhaled Oxygen Concentration - - Weight 61 kg (134 lb 8 oz) 11/03/2024 4:04 PM ED T Height 160 cm (5' 3 ) 11/03/2024 4:04 PM EDT Body Mass Index 23.83 11/03/2024 4:04 PM EDT Plan of Treatment Upcoming Encounters Date Type Department Care Team (Late st Contact Info) Description 11/24/2024 11:30 AM EDT Medication Management [facility] [address] [place], [place] [phone] Jes Olsen, PharmD [address] [place] [address] Health Maintenance Due Date Last Done Comments CT Colonography 1961 Colonoscopy 1961 Colorectal Cancer Screening 1961 FIT DNA/Cologuard 1961 FIT 1961 FOBT 1961 HIV Screening 1961 Sigmoidoscopy 1961 Alcohol/Substance Use Screening 1973 Hepatitis C Screening 1979 Dental Oral Exam 02/19/2024 08/20/2023, , 02/28/2016 Eye Exam 03/12/2024 03/12/2023, 02/21, 03/12/2023, Additional history exists COVID-19 Vaccine ( season) 2024 09/09/2021, 01/10/2021 Influenza Vaccine (#1) 2024 , 09/09/2021, 04/18/2021, Additional history exists Dental Prophylaxis 04/03/2024 10/01/2023, 0 10/08/2018, 07/03/2016 Diabetes: Foot Exam 06/25/2024 06/25/2023, 06/25/2023, 06/25/2023, Additional history exists Dental X-Ray: Bitewings 11/12/2024 11/12/19 24, 08/20/2023, 10/08/2018, Additional history exists Diabetes: Hemoglobin A1C 02/02/2025 025, 08/25/2024, 04/21/2024, Additional history exists Diabetes: Urine Protein Screening 06/02/2025 06/02/2024, 07/02/2023, 04/18/2021 Lipid Panel 06/02/2025 06/02/2024, 04/0 02/2024, 07/02/2023 Depression Screening 11/03/2025 11/03/2024, 11/04/19 25 SDOH Screening 11/03/2025 11/03/2024 Tobacco Screening 11/03/2025 11/03/2024 Dental X-Ray: Full Mouth 08/21/2026 08/20/2023, 08/0 02/2016 DTaP/Tdap/Td Vaccines (2 - Td or Tdap) 09/24/2028 09/24/2018, 12/01/2015 Hepatitis B Vaccines Completed 07/10/2016, 01/27/2016, 12/01/2015 Pneumococcal Vaccine: 50+ Years Completed 06/25/2023, 07/27/2017, 05/02/2016 RSV Patients and Patients Aged 60 years or older Completed 08/13/2023 Zoster Vaccines Completed 08/13/2023, 11/2023, 06/04/2023 HIB Vaccines Aged Out No longer eligi ble based on patient's age to complete this topic HPV Vaccines Aged Out No longer eligi ble based on patient's age to complete this topic Hepatitis A Vaccines Aged Out No long er eligible based on patient's age to complete this topic IPV Vaccines Aged Out No longer eligi ble based on patient's age to complete this topic Meningococcal Vaccine Aged Out No iftikhar violeta eligible based on patient's age to complete this topic RSV under 20 months Aged Out No longe r eligible based on patient's age to complete this topic Rotavirus Vaccines Aged Out No longer eligible based on patient's age to complete this topic Goals Goal Patient Goal Type Associated Problems Recent Progress Patient-Stated? Author Record your blood sugar as directed Result Component No Pretty, Jes, PharmD Note: Use CGM, ensuring sensor is scanned at least once every 8 hours to capture 24H data. Check BG manually, as directed. Hemoglobin A1c < 7 Result Component 12.3(11/04/19 4:07 PM EDT) No Puia, Jes, PharmD Procedures Procedure Name Priority Date/Time Associated Diagnosis Comments BASIC METABOLIC PANEL Routine 11/17/2024 10:25 AM EDT Type 2 diabetes mellitus with hyperglycemia, with long-term current use of insulin ([facility]) POCT GLYCATED HEMOGLOBIN, TOTAL Routine 11/03/2024 4:07 PM EDT Type 2 diabetes mellitus with hyperglycemia, with long-term current use of insulin ([facility]) POCT GLUCOSE Routine 11/03/2024 4:07 PM EDT Type 2 diabetes mellitus with hyperglycemia, with long-term current use of insulin ([facility]) POCT GLUCOSE Routine 08/25/2024 10:53 AM EST Type 2 diabetes mellitus with hyperglycemia, with long-term current use of insulin ([facility]) POCT GLYCATED HEMOGLOBIN, TOTAL Routine 08/25/2024 10:53 AM EST Type 2 diabetes mellitus with hyperglycemia, with long-term current use of insulin ([facility]) ALBUMIN, RANDOM URINE W/CREATININE Routine 06/02/2024 9:35 AM EST LIPID PANEL, STANDARD Routine 06/02/2024 9:35 AM EST BITEWINGS - 4 RADIOGRAPHIC IMAGES Routine 11/12/2023 9:00 AM EDT PROPHYLAXIS - ADULT Routine 10/01/2023 1 0:00 AM EDT Periodontal disease Dental calculus INTRAORAL - COMPLETE SERIES OF RADIOGRAPHIC IMAGES Routine 08/20/2023 1:00 PM EST PERIODIC ORAL EVALUATION - ESTABLISHED PATIENT Routine 08/20/2023 1:00 PM EST from Last 3 Months or Most Recently Relevant to Health Maintenance Results * (ABNORMAL) Basic Metabolic Panel (11/17/2024 10:25 AM EDT) Sodium 136 135 - 145 mmol/L [facility] Potassium 4.4 3.3 - 5.1 mmol/L [facility] Chloride 104 96 - 108 mmol/L [facility] Carbon Dioxide 24 22 - 29 mmol/L [facility] Anion Gap 12 12 - 20 [facility] Urea Nitrogen (BUN) 21(H) 9 - 16 mg/dL [facility] Creatinine, Serum 0.74 0.5 - 1.4 mg/dL [facility] Estimated Glomerular Filt Rate >60 [facility] Comment:Chronic Kidney Disea se: Estimated GFR < 60 mL/min/1.63x8Qnxdif Kidney Disease: Estimated GFR < 15 mL/min/1.73m2 Glucose 306(H) 60 - 115 mg/dL [facility] Calcium 9.3 8.4 - 10.2 mg/dL [facility] Blood Venous blood specimen / Unknown 11/17/2024 10:25 AM EDT 11/17/2024 11:00 AM EDT us Palmer Hernández MD LAB BLOOD ORDERABLES Final Resul t [facility] [address] [place] [phone] * (ABNORMAL) POCT HGB A1C (11/03/2024 4:07 PM EDT) Only the most recent of2 resultswithin the time period is included. Hemoglobin A1C 12.3(A) 4.0 - 6.0 % QC Media Lot # [id number] Lot# Expiration Date Blood 11/03/2024 4:07 PM EDT us Palmer Hernández MD POINT OF CARE TEST ENTER/EDIT OR DERABLES Final Result * (ABNORMAL) POCT Glucose (11/03/2024 4:07 PM EDT) Only the most recent of2 resultswithin the time period is included. Glucose Blood, POC 500(A) 60 - 200 mg/dL Comment:[facility] QC Media Lot # [id number] Lot# Expiration Date Blood Capillary blood specimen / Unknown 11/03/2024 4:07 PM EDT Result [facility] us Palmer Hernández MD POINT OF CARE TEST ENTER/EDIT OR DERABLES Final Result * (ABNORMAL) Albumin, Random Urine W/Creatinine (06/02/2024 9:35 AM EST) Creatinine, Urine 92.15 mg/dL [facility] Microalbumin Urine 70.0 mg/L H [facility] Microalbum Creatinine Ratio Ur 75.9(H) <30 ug/mg cr [facility] Comment:Albumin/Creatinine R atio Reference Ranges: Normal: < 30 ug/mg creatinine Microalbuminuria: 30 - 300 ug/mg creatinineClinical Albuminuria: > 300 ug/mg creatinine 06/02/2024 9:35 AM EST 06/02/2024 11:02 AM EST us Palmer Hernández MD LAB URINE ORDERABLES Final Resul t Performing Organization Address [facility] de Phone Number [facility] [address] [place] [address] [phone] * (ABNORMAL) Lipid Panel, Standard (06/02/2024 9:35 AM EST) Triglycerides 89 <150 mg/dL [facility] Comment:Desirable Triglyceri de: less than 150 mg/dLBorderline High Triglyceride 150-199 mg/dLHigh Triglyceride: 200-499 mg/dLVery High Triglyceride: greater than or equal to 5OO mg/dL Cholesterol 195 <200 mg/dL [facility] Comment:Desirable Cholestero l: less than 200 mg/dLBorderline High Cholesterol: 200-239 mg/dLHigh Cholesterol: greater than 239 mg/dL LDL Cholesterol Calculated 117(H) <100 mg/dL [facility] Comment:Desirable LDL: less than 100 mg/dLNear Optimal/Above Optimal LDL: 110- 129 mg/dLBorderline High LDL: 130-159 mg/dLHigh LDL: 160-189 mg/dLVery High LDL: greater than or equal to 190 mg/dL HDL Cholesterol 61 >40 mg/dL [facility] Comment:Desirable HDL: great er than 40 mg/dL Note: This HDL assay may give artificially low results in patients with liver disease. 06/02/2024 9:35 AM EST 06/02/2024 11:04 AM EST us Palmer Hernández MD LAB BLOOD ORDERABLES Final Resul t Performing Organization Address [facility] Co de Phone Number [facility] [address] [place] [address] [phone] from Last 3 Months or Most Recently Relevant to Health Maintenance Insurance [place]-HER[employer]AGE [facility] MEDICAID LIMITED ADULT DENTAL - HSN FULL (MEDICAID) Care Teams Mmi Teacher Relationship Specialty Start Date End Date Name, MD Palmer [address] [place] [address] PCP - General Family Medicine 12/14/15 Jes Olsen PharmD [address] [place] [address] Pharmacist Internal Medicine 08/13/23
--- OUTSIDE RECORDS SUMMARY | 2024-11-17 12:07 | XMS_ITS | Encounter Summary ---
Author Organization [employer] Address [address] [place] [address] Care Team Providers Care Refresh Technician Name Role Phone Name, Palmer BERMUDEZ Primary Care Provider [phone] Jes Olsen PharmD Unavailable [phone] Encounter Details Date Type Department Care Team (Late st Contact Info) Description 02/04/2024 Telephone [facility] [address] [place], [place] [phone] Name, MD Palmer [address] [place], [place] [phone] Social History Tobacco Use Types Packs/Day Years [...] Description 11/24/2024 11:30 AM EDT Medication Management [facility] [address] [place] [address] [phone] PuiaJes, PharmD [address] [place] [address] [phone] documented as of this encounter Goals Goal Patient Goal Type Associated Problems Recent Progress Patient-Stated? Author Record your blood sugar as directed Result Component No Puia, Jes, PharmD Note: Use CGM, ensuring sensor [...] documented as of this encounter Care Teams Refresh Technician Relationship Specialty Start Date End Date Name, MD Palmer [address] [place] [address] [phone] PCP - General Family Medicine 12/14/15 PuiaJohnJes, PharmD [address] [place] [address] [phone] Pharmacist Internal Medicine 08/13/23 documented as of this encounter
[2024-11-18 05:53] LABS: C Peptide 1.86 ng/mL (0.80-3.85)
[2024-11-20 21:09] LABS: Glutamic acid decarboxylase Ab <5 IU/mL (<5)
[2024-11-22 01:04] LABS: Insulinoma associated 2 aatb <5.4 U/mL (<5.4)
== END 2024-11-17 10:24 | disposition home or self-care (01) ==
LOC: HO.HHCL 10:23
PROVIDERS: Visit Provider Internal Medicine Geriatric Medicine
DX: E11.65 Type 2 diabetes mellitus with hyperglycemia (principal); Z79.4 Long term (current) use of insulin
CPT/HCPCS: 36415; 80048; 84681; 86341

== ENCOUNTER 2025-03-30 10:33 | Outpatient (REF) | payer MEDICAID, SELFPAY ==
--- OUTSIDE RECORDS SUMMARY | 2025-03-30 10:00 | XMS_ITS | Encounter Summary ---
Author Organization [employer] Address [address] [facility] [address] [place] [address] Care Team Providers Care Silk Screen Painter Name Role Phone Name, Palmer BERMUDEZ Primary Care Provider [phone] Jes Olsen PharmD Unavailable [phone] Reason for Visit * Reason Comments Diabetes Encounter Details Date Type Department Care Team ([facility] st Contact Info) Description 03/30/2025 10:00 AM EDT Office Visit [facility] MEDICINE [address] [place], [place] [phone] Name, MD Palmer [address] [place] [address] Type 2 diabetes mellitus with hyperglycemia, with long-term current use of insulin ([facility]) (Primary Dx); Polyneuropathy due to type 2 diabetes mellitus ([facility]) Social History Tobacco Use Types Packs/Day Years [...] the past 12 months, has t he [employer], gas, oil or water company threatened to [...] AM EDT documented as of this encounter Last Filed Vital Signs Vital Sign Reading Time Taken Comments Blood Pressure 104/60 03/30/2025 10:00 AM EDT Pulse 83 03/30/2025 10:00 AM EDT Temperature 36.1 C (96.9 F) 03/30/2025 10:00 AM EDT Respiratory Rate 12 03/30/2025 10:00 AM EDT Oxygen Saturation 99% 03/30/2025 10:00 AM EDT Inhaled Oxygen Concentration - - Weight 56.9 kg (125 lb 6.4 oz) 03/30/2025 10:00 AM EDT Height - - Body Mass Index 22.21 11/03/2024 4:04 PM EDT documented in this encounter Progress Notes * Palmer Hernández MD - 03/30/2025 10:00 AM EDT Subjective Patient ID: Yessi Malone is a 64 y.o. male who presents for Diabetes. Patient comes for a follow-up visit and we discussed several issues. He has longstanding uncontrolled type 2 diabetes mellitus treated with insulin. Complications include retinopathy and diabetic neuropathy. He follows with the [facility] program and has CGM in place. His blood sugar has remained uncontrolled despite our best efforts. The patient continues to have a liberal diet but he assures me he isusing his insulin and his oral medications. He did not respond to use of GLP-1 at all. Part of the problem is his low income and low literacy. Difficulty accessing healthy foods. Review of Systems Constitutional: Negative for chills, fatigue and fever. HENT: Negative for sore throat. Respiratory: Negative for cough, chest tightness and shortness of breath. Cardiovascular: Negative for chest pain, palpitations and leg swelling. Gastrointestinal: Negative for abdominal pain and blood in stool. Skin: Patient had an itchy cyst draining sebaceous like material on the right upper back. The sebaceous material was removed during the office visit without any pus drainage or significant bleeding. Will cover the area with topical antibiotics and a Band-Aid. Objective Vitals: 03/30/25 1000 BP: 104/60 BP Location: Left arm Patient Position: Sitting BP Cuff Size: Adult Pulse: 83 Resp: 12 Temp: 96.9 ??F (36.1 ??C) TempSrc: Temporal SpO2: 99% Weight: 125 lb 6.4 oz (56.9 kg) Physical Exam Constitutional: Appearance: Normal appearance. Cardiovascular: Rate and Rhythm: Normal rate and regular rhythm. Pulses: Dorsalis pedis pulses are 1+ on the right side and 1+ on the left side. Posterior tibial pulses are 1+ on the right side and 1+ on the left side. Heart sounds: No murmur heard. Pulmonary: Effort: Pulmonary effort is normal. No respiratory distress. Breath sounds: No wheezing, rhonchi or rales. Abdominal: Palpations: Abdomen is soft. Tenderness: There is no abdominal tenderness. Musculoskeletal: Right lower leg: No edema. Left lower leg: No edema. Right foot: Normal range of motion. Left foot: Normal range of motion. Feet: Right foot: Protective Sensation: 5 sites tested. 1 site sensed. Skin integrity: Skin integrity normal. Toenail Condition: Right toenails are normal. Left foot: Protective Sensation: 5 sites tested. 1 site sensed. Skin integrity: Skin integrity normal. Toenail Condition: Left toenails are normal. Neurological: Mental Status: He is alert. Lab Results Component Value Date HGBA1C 13.5 (A) 03/16/2025 HGBA1C 12.8 (A) 02/02/2025 HGBA1C 12.3 (A) 11/03/2024 HGBA1C 11.0 (A) 08/25/2024 HGBA1C 14.6 (A) 04/21/2024 HGBA1C 13.4 (A) 12/24/2023 HGBA1C 13.7 (A) 10/01/2023 HGBA1C 13.9 (A) 06/25/2023 Lab Results Component Value Date GLUCOSE 306 (H) 11/17/2024 NA 136 11/17/2024 K 4.4 11/17/2024 CO2 24 11/17/2024 CL 104 11/17/2024 BUN 21 (H) 11/17/2024 CREATININE 0.74 11/17/2024 Assessment/Plan Diagnoses and all orders for this visit: Type 2 diabetes mellitus with hyperglycemia, with long-term current use of insulin ([facility]) Comments: I will increase his Tresiba from 18 to 20 units daily. Continue current dose of Humalog prior to meals, continue current dose of metformin, losartan, atorvastatin and baby aspirin. Check fasting blood work listed below and keep upcoming appointment with [facility] program. Today's 90-day average was 370 without episodes of hypoglycemia. I again reminded the patient to at least avoid sweets, soda, any type of sweetened beverage. I recommended to always wear socks and athletic shoes Orders: - POCT Glucose - Comprehensive Metabolic Panel; Future - Lipid Panel, Standard; Future - Albumin, Random Urine W/Creatinine; Future - insulin degludec (Tresiba FlexTouch) 200 UNIT/ML injection; Inject 20 Units under the skin in themorning. Polyneuropathy due to type 2 diabetes mellitus ([facility]) - Comprehensive Metabolic Panel; Future - Lipid Panel, Standard; Future - Albumin, Random Urine W/Creatinine; Future Future Appointments Date Time Provider Department Center 04/06/2025 10:30 AM Jes Olsen PharmD MEDICINE [facility] 06/01/2025 1:30 PM Cristal Long OD [facility] documented in this encounter Plan of Treatment Upcoming Encounters Date Type Department Care Team (Late st Contact Info) Description 04/06/2025 10:30 AM EDT Medication Management [facility] MEDICINE [address] [place] [address] Jes Olsen PharmD [address] [place] [address] 06/01/2025 1:30 PM EST Office Visit [facility] OPTOMETRY [address] [place] [address] Ethan, Cristal, OD [address] [place] [address] documented as of this encounter Goals Goal Patient Goal Type Associated Problems Recent Progress Patient-Stated? Author Record your blood sugar as directed Result Component No Jes Olsen PharmD Note: Use CGM, ensuring sensor is scanned at least once every 8 hours to capture 24H data. Check BG manually, as directed. Hemoglobin A1c < 7 Result Component 13.5(03/16/20 9:56 AM EDT) No Jes Olsen PharmD documented as of this encounter Procedures Procedure Name Priority Date/Time Associated Diagnosis Comments ALBUMIN, RANDOM URINE W/CREATININE Routine 03/30/2025 10:39 AM EDT Type 2 diabetes mellitus with hyperglycemia, with long-term current use of insulin ([facility]) Polyneuropathy due to type 2 diabetes mellitus ([facility]) LIPID PANEL, STANDARD Routine 03/30/2025 10:39 AM EDT Type 2 diabetes mellitus with hyperglycemia, with long-term current use of insulin ([facility]) Polyneuropathy due to type 2 diabetes mellitus (CMS/HCC) COMPREHENSIVE METABOLIC PANEL Routine 03/30/2025 10:39 AM EDT Type 2 diabetes mellitus with hyperglycemia, with long-term current use of insulin ([facility]) Polyneuropathy due to type 2 diabetes mellitus (CMS/HCC) POCT GLUCOSE Routine 03/30/2025 10:01 AM EDT Type 2 diabetes mellitus with hyperglycemia, with long-term current use of insulin (CMS/HCC) documented in this encounter Results * (ABNORMAL) Albumin, Random Urine W/Creatinine (03/30/2025 10:39 AM EDT) Creatinine, Urine 93.37 mg/dL [facility] Microalbumin Urine 61.0 mg/L H [facility] Microalbum Creatinine Ratio Ur 65.3(H) <30 ug/mg cr [facility] Comment:Albumin/Creatinine R atio Reference Ranges: Normal: < 30 ug/mg creatinine Microalbuminuria: 30 - 300 ug/mg creatinineClinical Albuminuria: > 300 ug/mg creatinine Urine (Urine, Random) 03/30/2025 10:39 AM EDT 03/30/2025 11:38 AM EDT us Palmer Name MD LAB URINE ORDERABLES Final Resul t [facility] [address] [place] [phone] * Lipid Panel, Standard (03/30/2025 10:39 AM EDT) Triglycerides 122 <150 mg/dL [facility] Comment:Desirable Triglyceri de: less than 150 mg/dLBorderline High Triglyceride 150-199 mg/dLHigh Triglyceride: 200-499 mg/dLVery High Triglyceride: greater than or equal to 5OO mg/dL Cholesterol 174 <200 mg/dL [facility] Comment:Desirable Cholestero l: less than 200 mg/dLBorderline High Cholesterol: 200-239 mg/dLHigh Cholesterol: greater than 239 mg/dL LDL Cholesterol Calculated 93 <100 mg/dL [facility] Comment:Desirable LDL: less than 100 mg/dLNear Optimal/Above Optimal LDL: 110- 129 mg/dLBorderline High LDL: 130-159 mg/dLHigh LDL: 160-189 mg/dLVery High LDL: greater than or equal to 190 mg/dL HDL Cholesterol 57 >40 mg/dL [facility] Comment:Desirable HDL: great er than 40 mg/dL Note: This HDL assay may give artificially low results in patients with liver disease. Blood Venous blood specimen / Unknown 03/30/2025 10:39 AM EDT 03/30/2025 11:21 AM EDT us Palmer Hernández MD LAB BLOOD ORDERABLES Final Resul t [facility] [address] [place] [address] [phone] * (ABNORMAL) Comprehensive Metabolic Panel (03/30/2025 10:39 AM EDT) Sodium 140 135 - 145 mmol/L [facility] Potassium 4.3 3.3 - 5.1 mmol/L [facility] Chloride 105 96 - 108 mmol/L [facility] Carbon Dioxide 26 22 - 29 mmol/L [facility] Anion Gap 13 12 - 20 [facility] Urea Nitrogen (BUN) 23(H) 9 - 16 mg/dL [facility] Creatinine, Serum 0.69 0.5 - 1.4 mg/dL [facility] Estimated Glomerular Filt Rate >60 [facility] Comment:Chronic Kidney Disea se: Estimated GFR < 60 mL/min/1.14f9Azdrop Kidney Disease: Estimated GFR < 15 mL/min/1.73m2 Glucose 345(H) 60 - 115 mg/dL [facility] Calcium 9.2 8.4 - 10.2 mg/dL [facility] Bilirubin, Total 0.6 0.0 - 1.0 mg/dL [facility] Aspartate Amino Transferase 21 5 - 37 U/L [facility] Alanine Aminotransferase 20 0 - 40 U/L [facility] Total Protein 7.4 6.5 - 8.0 g/dL [facility] Albumin Level 4.4 3.5 - 5.0 g/dL [facility] Alkaline Phosphatase 131(H) 39 - 117 U/L [facility] Blood Venous blood specimen / Unknown 03/30/2025 10:39 AM EDT 03/30/2025 11:21 AM EDT us Palmer Name LAB BLOOD ORDERABLES Final Resul t [facility] [address] [place] [phone] [phone] * POCT Glucose (03/30/2025 10:01 AM EDT) Glucose Blood, POC 167 60 - 200 mg/dL QC Media Lot # [id number] Lot# Expiration Date Blood Capillary blood specimen / Unknown 03/30/2025 10:01 AM EDT Palmer Hernández MD POINT OF CARE TEST ENTER/EDIT OR DERABLES Final Result documented in this encounter Visit Diagnoses Diagnosis Type 2 diabetes mellitus with hyperglycemia, with long-term current use of insulin ([facility])- Primary Polyneuropathy due to type 2 diabetes mellitus ([facility]) documented in this encounter Additional Health Concerns Assessment Noted Time PHQ-9 Depression Total Score: 11 11/03/ 025 4:11 PM EDT documented as of this encounter Care Teams Silk Screen Painter Relationship Specialty Start Date End Date Name, MD Palmer [address] [place] [address] PCP - General Family Medicine 12/14/15 Jes Olsen PharmD [address] [place] [address] Pharmacist Internal Medicine 08/13/23 documented as of this encounter
[2025-03-30 12:10] LABS: Alanine Aminotransferase 20 U/L (0-40); Albumin Level 4.4 g/dL (3.5-5.0); Alkaline Phosphatase 131 U/L (39-117); Anion Gap 13 (12-20); Aspartate Amino Transferase 21 U/L (5-37); Blood Urea Nitrogen 23 mg/dL (9-16); Calcium 9.2 mg/dL (8.4-10.2); Carbon Dioxide 26 mmol/L (22-29); Chloride 105 mmol/L (96-108); Cholesterol 174 mg/dL (<200); Estimated Glomerular Filt Rate > 60; HDL Cholesterol 57 mg/dL (>40); Potassium 4.3 mmol/L (3.3-5.1); Sodium 140 mmol/L (135-145); Total Protein 7.4 g/dL (6.5-8.0); Triglycerides 122 mg/dL (<150)
[2025-03-30 12:18] LABS: Microalbum/Creatinine Ratio Ur 65.3 ug/mg cr (<30)
--- OUTSIDE RECORDS SUMMARY | 2025-03-30 12:44 | XMS_ITS | Encounter Summary ---
Author Organization [employer] Address 75 [facility] 7t [place] [address] Care Team Providers Care Ceiling Installer Name Role Phone Name, Palmer BERMUDEZ Primary Care Provider [phone] Jes Olsen PharmD Unavailable [phone] Reason for Visit * Reason Comments Med Refill Encounter Details Date Type Department Care Team ([facility] st Contact Info) Description 12/08/2024 Refill [facility] MEDICINE [address] [place], [place] [phone] Name, MD Palmer [address] [place] [address] Type 2 diabetes mellitus with hyperglycemia, with long-term current use of insulin ([facility]); Polyneuropathy due to type 2 diabetes mellitus ([facility]); Diabetic retinopathy associated with type 2 diabetes mellitus, macular edema presence unspecified, unspecified laterality, unspecified retinopathy severity ([facility]); Type 2 diabetes mellitus with hyperglycemia, with long-term current use of insulin ([facility]) Social History Tobacco Use Types Packs/Day [...] Description 04/06/2025 10:30 AM EDT Medication Management [facility] MEDICINE [address] [place] [address] Jes Olsen, PharmD [address] [place] [address] 06/01/2025 1:30 PM EST Office Visit [facility] OPTOMETRY [address] [place] [address] Cristal Long, OD [address] [place] [address] documented as of this encounter Goals Goal Patient Goal Type Associated Problems Recent Progress Patient-Stated? Author Record your blood sugar as directed Result Component No Jes Olsen, PharmD Note: Use CGM, ensuring sensor is scanned at least once every 8 hours to capture 24H data. Check BG manually, as directed. Hemoglobin A1c < 7 Result Component 13.5(03/16/20 25 9:56 AM EDT) No Jes Olsen PharmD documented as of this encounter Visit Diagnoses Diagnosis Type 2 diabetes mellitus with hyperglycemia, with long-term current use of insulin ([facility]) Polyneuropathy due to type 2 diabetes mellitus ([facility]) Diabetic retinopathy associated with type 2 diabetes mellitus, macular edema presence unspecified, unspecified laterality, unspecified retinopathy severity ([facility]) documented in this encounter Additional Health Concerns Assessment Noted Time PHQ-9 Depression Total Score: 11 11/03/ 025 4:11 PM EDT documented as of this encounter Care Teams Ceiling Installer Relationship Specialty Start Date End Date Name, MD Palmer [address] [place] [address] PCP - General Family Medicine 12/14/15 Jes Olsen PharmD [address] [place] [address] Pharmacist Internal Medicine 08/13/23 documented as of this encounter
--- OUTSIDE RECORDS SUMMARY | 2025-03-30 12:44 | XMS_ITS | Encounter Summary ---
Author Organization [employer] Address [address] [facility] 7t [place] [address] Care Team Providers Care Clinical Writer Name Role Phone Name, Palmer BERMUDEZ Primary Care Provider [phone] Jes Olsen PharmD Unavailable [phone] Encounter Details Date Type Department Care Team (Late st Contact Info) Description 02/04/2024 Telephone [facility] MEDICINE [address] [place], [place] [phone] Name, MD Palmer [address] [place], [place] [phone] Social History Tobacco Use Types Packs/Day Years [...] Description 04/06/2025 10:30 AM EDT Medication Management [facility] MEDICINE [address] [place] [address] Jes Olsen, PharmD [address] [place] [address] 06/01/2025 1:30 PM EST Office Visit [facility] OPTOMETRY [address] [place] [address] Ethan, Cristal, OD [address] [place] [address] documented as of this encounter Goals Goal Patient Goal Type Associated Problems Recent Progress Patient-Stated? Author Record your blood sugar as directed Result Component No Puia, Jes, PharmD Note: Use CGM, ensuring sensor is scanned at least once every 8 hours to capture 24H data. Check BG manually, as directed. Hemoglobin A1c < 7 Result Component 13.5(03/16/20 25 9:56 AM EDT) No Puia, Jes, PharmD documented as of this encounter Visit Diagnoses Not on filedocumented in this encounter Additional Health Concerns Assessment Noted Time PHQ-9 Depression Total Score: 3 09/12/19 24 9:02 AM EST documented as of this encounter Care Teams Clinical Writer Relationship Specialty Start Date End Date Name, MD Palmer [address] [place] [address] PCP - General Family Medicine 12/14/15 Jes Olsen, Kyle [address] [place] [phone] Pharmacist Internal Medicine 08/13/23 documented as of this encounter
--- OUTSIDE RECORDS SUMMARY | 2025-03-30 12:44 | XMS_ITS | Encounter Summary ---
Author Organization [employer] [facility] Address [address] [facility] [address]t [place] [address] Care Team Providers Care Molder Foam Rubber Name Role Phone Name, Palmer BERMUDEZ Primary Care Provider [phone] Jes Olsen PharmD Unavailable [phone] Encounter Details Date Type Department Care Team (Latest Contact Info) Description 10/08/2018 Abstract [facility] CONVERSIONS Dental, Provider, DDS Social History Tobacco [...] Description 04/06/2025 10:30 AM EDT Medication Management [facility] MEDICINE [address] [place] [address] Jes Olsen, PharmD [address] [place] [address] 06/01/2025 1:30 PM EST Office Visit [facility] OPTOMETRY [address] [place] [address] Cristal Long, OD [address] [place] [address] documented as of this encounter Visit Diagnoses Not on filedocumented in this encounter Care Teams Molder Foam Rubber Relationship Specialty Start Date End Date Name, MD Palmer [address] [place] [address] PCP - General Family Medicine 12/14/15 Jes Olsen PharmD [address] [place] [address] Pharmacist Internal Medicine 08/13/23 documented as of this encounter
--- OUTSIDE RECORDS SUMMARY | 2025-03-30 12:44 | XMS_ITS | Encounter Summary ---
Author Organization [employer] Address [address] [facility] [address]t [place] [address] Care Team Providers Care Wire Weaver Name Role Phone Name, Palmer BERMUDEZ Primary Care Provider [phone] Jes Olsen PharmD Unavailable [phone] Reason for Visit * Reason Comments Med Refill Encounter Details Date Type Department Care Team ([facility] st Contact Info) Description 01/08/[address] [facility] MEDICINE [address] [place], [place] [phone] Jes Olsen, PharmD [address] [place] [address] Type 2 diabetes mellitus with hyperglycemia, with long-term current use of insulin ([facility]) Social History Tobacco Use Types Packs/Day [...] Description 04/06/2025 10:30 AM EDT Medication Management [facility] MEDICINE [address] [place] [address] Jes Olsen, PharmD [address] [place] [address] 06/01/2025 1:30 PM EST Office Visit [facility] OPTOMETRY [address] [place] [address] Ethan, Cristal, OD [address] [place] [address] documented as of this encounter Goals Goal Patient Goal Type Associated Problems Recent Progress Patient-Stated? Author Record your blood sugar as directed Result Component No Jes Olsen, PharmD Note: Use CGM, ensuring sensor is scanned at least once every 8 hours to capture 24H data. Check BG manually, as directed. Hemoglobin A1c < 7 Result Component 13.5(03/16/20 25 9:56 AM EDT) No Jes Olsen, PharmD documented as of this encounter Visit Diagnoses Diagnosis Type 2 diabetes mellitus with hyperglycemia, with long-term current use of insulin ([facility]) documented in this encounter Additional Health Concerns Assessment Noted Time PHQ-9 Depression Total Score: 3 09/12/19 24 9:02 AM EST documented as of this encounter Care Teams Wire Weaver Relationship Specialty Start Date End Date Name, MD Palmer [address] [place] [address] PCP - General Family Medicine 12/14/15 Jes Olsen, Kyle [address] [place] [address] Pharmacist Internal Medicine 08/13/23 documented as of this encounter
--- OUTSIDE RECORDS SUMMARY | 2025-03-30 12:44 | XMS_ITS | Encounter Summary ---
Author Organization [email or web address] Address [address] [facility] [address]t [place] [address] Care Team Providers Care Mine Engineering Superintendent Name Role Phone Name, Palmer BERMUDEZ Primary Care Provider [phone] Jes Olsen PharmD Unavailable [phone] Reason for Visit * Reason Onset Date Comments Returning Call 04/21/2024 Encounter Details Date Type Department Care Team ([facility] st Contact Info) Description 04/21/2024 Telephone [facility] MEDICINE [address] [place], [place] [phone] Name, MD Palmer [address] [place] [address] Returning Call Social History Tobacco Use Types [...] pt stated he received a call but consumer loan underwriter did not see anything documented. documented in this encounter Plan of Treatment Upcoming Encounters Date Type Department Care Team (Late st Contact Info) Description 04/06/2025 10:30 AM EDT Medication Management [facility] MEDICINE [address] [place] [address] Jes Olsen, LexieD [address] [place] [address] 06/01/2025 1:30 PM EST Office Visit [facility] OPTOMETRY [address] [place] [address] Ethan, Cristal, OD [address] [place] [address] documented as of this encounter Goals Goal Patient Goal Type Associated Problems Recent Progress Patient-Stated? Author Record your blood sugar as directed Result Component No Jes Olsen, PharmNoel Note: Use CGM, ensuring sensor is scanned at least once every 8 hours to capture 24H data. Check BG manually, as directed. Hemoglobin A1c < 7 Result Component 13.5(03/16/20 9:56 AM EDT) No Jes Olsen, PharmD documented as of this encounter Visit Diagnoses Not on filedocumented in this encounter Additional Health Concerns Assessment Noted Time PHQ-9 Depression Total Score: 3 09/12/19 24 9:02 AM EST documented as of this encounter Care Teams Mine Engineering Superintendent Relationship Specialty Start Date End Date Name, MD Palmer [address] [place] [address] PCP - General Family Medicine 12/14/15 Jes Olsen, PharmD [address] [place] [address] Pharmacist Internal Medicine 08/13/23 documented as of this encounter
--- OUTSIDE RECORDS SUMMARY | 2025-03-30 12:44 | XMS_ITS | Encounter Summary ---
Author Organization [employer] Address [address] [facility] 7t [place] [address] Care Team Providers Care Student Success Counselor Name Role Phone Name, Palmer BERMUDEZ Primary Care Provider [phone] Jes Olsen PharmD Unavailable [phone] Reason for Visit * Reason Onset Date Comments Chart Prep 03/27/2025 Encounter Details Date Type Department Care Team ([facility] st Contact Info) Description 03/27/2025 Telephone [facility] MEDICINE [address] [place], [place] [phone] Name, MD Palmer [address] [place] [address] Chart Prep Social History Tobacco Use Types Packs/Day Years [...] encounter Miscellaneous Notes * Telephone Encounter - Melissa Rice MA - 03/27/2025 10:11 AM EDT Chart Prep Labs: done from 03/16/25 Images: not applicable Referrals: Optometry - Internal [facility] Dental - Internal Vaccines due: Covid and Flu Screenings: colonoscopy, eye exam, foot exam, and HIV, Hep C. Overdue care gaps: SBIRT, Oral health screening, and Tobacco documented in this encounter Plan of Treatment Upcoming Encounters Date Type Department Care Team (Late st Contact Info) Description 04/06/2025 10:30 AM EDT Medication Management [facility] MEDICINE [address] [place] [address] Jes Olsen, PharmD [address] [place] [address] 06/01/2025 1:30 PM EST Office Visit [facility] OPTOMETRY [address] [place] [address] Cristal Long, OD [address] [place] [address] documented as of this encounter Goals Goal [...] documented as of this encounter Care Teams Student Success Counselor Relationship Specialty Start Date End Date Name, MD Palmer [address] [place] [address] PCP - General Family Medicine 12/14/15 Jes Olsen PharmD [address] [place] [address] Pharmacist Internal Medicine 08/13/23 documented as of this encounter
--- OUTSIDE RECORDS SUMMARY | 2025-03-30 12:44 | XMS_ITS | Encounter Summary ---
Author Organization [employer] Address [address] [facility] 7t [place] [address] Care Team Providers Care Social Welfare Research Worker Name Role Phone Name, Palmer BERMUDEZ Primary Care Provider [phone] Jes Olsen PharmD Unavailable [phone] Encounter Details Date Type Department Care Team (Latest Contact Info) Description 03/30/2025 Travel Social History Tobacco Use Types Packs/Day [...] Description 04/06/2025 10:30 AM EDT Medication Management [facility] MEDICINE [address] [place] [address] Puia, Jes, PharmD [address] [place] [address] 06/01/2025 1:30 PM EST Office Visit [facility] OPTOMETRY [address] [place] [address] Ethan, Cristal, OD [address] [place] [address] documented as of this encounter Goals Goal [...] documented as of this encounter Care Teams Social Welfare Research Worker Relationship Specialty Start Date End Date Name, MD Palmer [address] [place] [address] PCP - General Family Medicine 12/14/15 Jes Olsen, Kyle [address] [place] [phone] Pharmacist Internal Medicine 08/13/23 documented as of this encounter
--- OUTSIDE RECORDS SUMMARY | 2025-03-30 12:44 | XMS_ITS | Clinical Summary ---
Author Organization [employer] Address [address] [facility] 7[address] [place] [address] Care Team Providers Care Hotel Superintendent Name Role Phone Name, Palmer BERMUDEZ Primary Care Provider Jes Olsen PharmD Unavailable [phone] Allergies No known active allergies Medications Blood Pressure kitIndication s:Type 2 diabetes mellitus with hyperglycemia , with long-term current use of insulin ([facility]),Natalie lino Use as directed once daily to check home BP 1 kit 024 Active insulin pen needle (UltiCare Micro Pen [place]) 32G x 4 mm miscIndicatio ns:Type 2 diabetes mellitus with hyperglycemia , with long-term current use of insulin ([facility]) Use as directed to inject insulin 4 times daily 200 each 11 025 Active atorvastatin (Lipitor) 80 MG tabletIndicat ions:Type 2 diabetes mellitus with hyperglycemia , with long-term current use of insulin ([facility]) Take 1 tablet (80 mg) by mouth Once per day. 90 tablet 3 025 Active Aspirin EC Adult Low Dose 81 MG EC tabletIndicat ions:Type 2 diabetes mellitus with hyperglycemia , with long-term current use of insulin ([facility]) TAKE 1 TABLET BY MOUTH EVERY MORNING 90 tablet 3 025 Active Continuous Glucose Social Service Worker (FreeStyle Ayse 3 [place]) deviceIndicat ions:Type 2 diabetes mellitus with hyperglycemia , with long-term current use of insulin (CMS/HCC) USE DIRECTED EVERY 8 HOURS 1 each 025 Active TRUEplus Lancets 33G miscIndicatio ns:Type 2 diabetes mellitus with hyperglycemia , with long-term current use of insulin ([facility]) USE TO TEST BLOOD SUGAR FOUR TIMES DAILY 100 each Active glucose blood (FreeStyle Precision Robbie Test) test stripIndicati ons:Type 2 diabetes mellitus with hyperglycemia , with long-term current use of insulin ([facility]) USE TO TEST BLOOD SUGAR FOUR TIMES DAILY 100 each 2025 Active losartan (Cozaar) 25 MG tablet TAKE 1 TABLET BY MOUTH EVERY MORNING 90 tablet 1 Active Multiple Vitamin (Multivitamin ) tablet TAKE 1 TABLET BY MOUTH EVERY MORNING 90 tablet 1 Active insulin lispro (HumaLOG KWIKPEN) 200 UNIT/ML solution pen-injector penIndication s:Type 2 diabetes mellitus with hyperglycemia , with long-term current use of insulin ([facility]) INJECT 6 UNITS SUBCUTANEOUSLY THREE TIMES DAILY WITH MEALS. Active metFORMIN XR (Glucophage-X R) 750 MG 24 hr tabletIndicat ions:Type 2 diabetes mellitus with hyperglycemia , with long-term current use of insulin ([facility]) Take 2 tablets (1,500 mg) by mouth with breakfast. Do not crush, chew, or split. 60 tablet 2025 Active Continuous Glucose Sensor (FreeStyle Ayse 3 Plus Sensor) misc 1 each every 15 days. Apply 1 every 15 days as directed for CGM 2 each Active insulin degludec (Tresiba FlexTouch) 200 UNIT/ML injectionIndi cations:Type 2 diabetes mellitus with hyperglycemia , with long-term current use of insulin ([facility]) Inject 20 Units under the skin in the morning. 3 mL 2 Active metFORMIN XR (Glucophage-X R) 750 MG 24 hr tabletIndicat ions:Type 2 diabetes mellitus with hyperglycemia , with long-term current use of insulin ([facility]) Take 1 tablet (750 mg) by mouth with breakfast. Do not crush, chew, or split. 30 tablet 2024 Discontinued(R eorder (will not trigger notification to Pharmacy)) Continuous Glucose Sensor (FreeStyle Ayse 3 Plus Sensor) misc 1 each every 15 days. Apply 1 every 15 days as directed for CGM 2 each 25/ 2025 Discontinued(R eorder (will not trigger notification to Pharmacy)) insulin lispro (HumaLOG KWIKPEN) 200 UNIT/ML solution pen-injector penIndication s:Type 2 diabetes mellitus with hyperglycemia , with long-term current use of insulin (CMS/HCC) INJECT 4 UNITS SUBCUTANEOUSLY THREE TIMES DAILY WITH MEALS. 025 2024 Discontinued(R eorder (will not trigger notification to Pharmacy)) insulin degludec (Tresiba FlexTouch) 200 UNIT/ML injectionIndi cations:Type 2 diabetes mellitus with hyperglycemia , with long-term current use of insulin (CMS/HCC) Inject 12 Units under the skin in the morning. 025 2024 Discontinued(R eorder (will not trigger notification to Pharmacy)) insulin degludec (Tresiba FlexTouch) 200 UNIT/ML injectionIndi cations:Type 2 diabetes mellitus with hyperglycemia , with long-term current use of insulin (CMS/HCC) Inject 18 Units under the skin in the morning. 025 2024 Discontinued(R eorder (will not trigger [...] Encounters Date Type Department Care Team Description 03/30/2025 10:00 AM EDT Office Visit [address] [address] Name, MD Palmer Type 2 diabetes mellitus with hyperglycemia, with long-term current use of insulin ([facility]) (Primary Dx); Polyneuropathy due to type 2 diabetes mellitus ([facility]) 03/30/2025 Travel 03/27/2025 Telephone [facility] MEDICINE [address] [place] [address] Palmer Hernández MD Chart Prep 03/16/2025 9:40 AM EDT Office Visit [facility] [address] [place] [address] Omar Salazar MD Uncontrolled type 2 diabetes mellitus with hyperglycemia ([facility]) (Primary Dx); Dizziness 03/16/2025 Telephone [facility] MED[facility]INE [address] [place] [address] Palmer Hernández MD 03/16/2025 Travel 03/02/2025 Travel 02/16/2025 Travel 02/02/2025 Travel 01/18/2025 Refill [facility] [address] [place] [address] Palmer Hernández MD 01/02/2025 Telephone [facility] MED[facility] [address] [place] [address] Palmer Hernández MD Telephone Call from Last 3 Months Immunizations Immunization Administration Dates Next Due Hep B, adult 07/10/2016,01/27/2016,12/01/2015 Influenza injectable quadriv alent IIV4 with preservative 05/21/2018,05/10/2017,04/10/2016 Influenza injectable quadriv alent preservative free 06/25/2023,09/09/2021,04/18/2021,09/15 Pneumococcal Conjugate PCV 20 06/25/2023 Pneumococcal Polysaccharide PPSV23 07/27/2017, RSV Bivalent 08/13/2023 TD (adult), 2 Lf tetanus tox oid, preservative free, adsorbed 12/01/2015 Tdap 09/24/2018 Zoster, Recombinant 08/13/2023,06/04/2023 Social History Tobacco Use Types Packs/Day Years [...] is your housing situation today? I have hevaen page 11/03/[address] you [...] 6.4 oz) 03/30/2025 10:00 AM EDT Height 160 cm (5' 3 ) 11/03/2024 4:04 PM EDT Body Mass Index 22.21 11/03/2024 4:04 PM EDT Plan of Treatment Upcoming Encounters Date Type Department Care Team (Late st Contact Info) Description 04/06/2025 10:30 AM EDT Medication Management [facility] MEDICINE [address] [place] [address] Jes Olsen, PharmD [address] [place] [address] 06/01/2025 1:30 PM EST Office Visit [facility] OPTOMETRY [address] [place] [address] Ethan, Cristal, OD [address] [place] [address] Health Maintenance Due Date Last Done Comments CT Colonography 1961 Colonoscopy 1961 Colorectal Cancer Screening 1961 FIT DNA/Cologuard 1961 FIT 1961 FOBT 1961 HIV Screening 1961 Sigmoidoscopy 1961 Hepatitis C Screening 1979 Dental Oral Exam 02/19/2024 08/20/2023, , 02/28/2016 Eye Exam 03/12/2024 03/12/2023, 02/21, 03/12/2023, Additional history exists Dental Prophylaxis 04/03/2024 10/01/2023, 0 10/08/2018, 07/03/2016 Dental X-Ray: Bitewings 11/12/2024 11/12/19 24, 08/20/2023, 10/08/2018, Additional history exists COVID-19 Vaccine ( season) 2025 09/09/2021, 01/10/2021 Influenza Vaccine (#1) 2025 , 09/09/2021, 04/18/2021, Additional history exists Depression Monitoring 05/05/2025 11/03/2024, 025 Diabetes: Hemoglobin A1C 06/16/2025 025, 02/02/2025, 11/03/2024, Additional history exists Disability Screening 11/03/2025 11/03/2024 SDOH Screening 11/03/2025 11/03/2024 Alcohol/Substance Use Screening 03/30/2026 03/30/2025 Diabetes: Foot Exam 03/30/2026 03/30/2025, 03/30/2025, 03/30/2025, Additional history exists Diabetes: Urine Protein Screening 03/30/2026 03/30/2025, 06/02/2024, 07/02/2023, Additional history exists Lipid Panel 03/30/2026 03/30/2025, 05/23, 10/29/2023, Additional history exists Tobacco Screening 03/30/2026 03/30/2025 Dental X-Ray: Full Mouth 08/21/2026 08/20/2023, 08/0 02/2016 DTaP/Tdap/Td Vaccines (2 - Td or Tdap) 09/24/2028 09/24/2018, 12/01/2015 Hepatitis B Vaccines Completed 07/10/2016, 01/27/2016, 12/01/2015 Pneumococcal Vaccine: 50+ Years Completed 06/25/2023, 07/27/2017, 05/02/2016 RSV Patients and Patients Aged 60 years or older Completed 08/13/2023 Zoster Vaccines Completed 08/13/2023, 06/04/2023 HIB Vaccines Aged Out No longer [...] patient's age to complete this topic Meningococcal B Vaccine Aged Out No l onger eligible based on patient's age to complete [...] Result Component 13.5(03/16/20 9:56 AM EDT) No Puia, Jes, PharmD Procedures Procedure Name Priority Date/Time Associated Diagnosis Comments ALBUMIN, RANDOM URINE W/CREATININE Routine 03/30/2025 10:39 AM EDT Type 2 diabetes mellitus with hyperglycemia, with long-term current use of insulin ([facility]) Polyneuropathy due to type 2 diabetes mellitus ([facility]) LIPID PANEL, STANDARD Routine 03/30/2025 10:39 AM EDT Type 2 diabetes mellitus with hyperglycemia, with long-term current use of insulin ([facility]) Polyneuropathy due to type 2 diabetes mellitus ([facility]) COMPREHENSIVE METABOLIC PANEL Routine 03/30/2025 10:39 AM EDT Type 2 diabetes mellitus with hyperglycemia, with long-term current use of insulin ([facility]) Polyneuropathy due to type 2 diabetes mellitus ([facility]) POCT GLUCOSE Routine 03/30/2025 10:01 AM EDT Type 2 diabetes mellitus with hyperglycemia, with long-term current use of insulin ([facility]) POCT RAPID COVID ANTIGEN Routine 03/16/2025 9:56 AM EDT Dizziness POCT GLUCOSE Routine 03/16/2025 9:56 AM EDT Dizziness POCT GLYCATED HEMOGLOBIN, TOTAL Routine 03/16/2025 9:56 AM EDT Dizziness POCT URINALYSIS DIPSTICK Routine 03/16/2025 9:56 AM EDT Dizziness POCT GLYCATED HEMOGLOBIN, TOTAL Routine 02/02/2025 1:21 PM EDT Uncontrolled type 2 diabetes mellitus with hyperglycemia ([facility]) BITEWINGS - 4 RADIOGRAPHIC IMAGES Routine 11/12/2023 9:00 AM EDT PROPHYLAXIS - ADULT Routine 10/01/2023 1 0:00 AM EDT Periodontal disease Dental calculus INTRAORAL - COMPLETE SERIES OF RADIOGRAPHIC IMAGES Routine 08/20/2023 1:00 PM EST PERIODIC ORAL EVALUATION - ESTABLISHED PATIENT Routine 08/20/2023 1:00 PM EST from Last 3 Months or Most Recently Relevant to Health Maintenance Results * (ABNORMAL) Albumin, Random Urine W/Creatinine (03/30/2025 10:39 AM EDT) Creatinine, Urine 93.37 mg/dL [facility] Microalbumin Urine 61.0 mg/L [facility] Microalbum Creatinine Ratio Ur 65.3(H) <30 ug/mg cr [facility] Comment:Albumin/Creatinine R atio Reference Ranges: Normal: < 30 ug/mg creatinine Microalbuminuria: 30 - 300 ug/mg creatinineClinical Albuminuria: > 300 ug/mg creatinine Urine (Urine, Random) 03/30/2025 10:39 AM EDT 03/30/2025 11:38 AM EDT us Palmer Name LAB URINE ORDERABLES Final Resul t [facility] [address] [place] [phone] * Lipid Panel, Standard (03/30/2025 10:39 AM EDT) Triglycerides 122 <150 mg/dL [facility] Comment:Desirable Triglyceri de: less than 150 mg/dLBorderline High Triglyceride 150-199 mg/dLHigh Triglyceride: 200-499 mg/dLVery High Triglyceride: greater than or equal to 5OO mg/dL Cholesterol 174 <200 mg/dL [facility] Comment:Desirable Cholestero l: less than 200 mg/dLBorderline High Cholesterol: 200-239 mg/dLHigh Cholesterol: greater than 239 mg/dL LDL Cholesterol Calculated 93 <100 mg/dL [facility] Comment:Desirable LDL: less than 100 mg/dLNear Optimal/Above Optimal LDL: 110- 129 mg/dLBorderline High LDL: 130-159 mg/dLHigh LDL: 160-189 mg/dLVery High LDL: greater than or equal to 190 mg/dL HDL Cholesterol 57 >40 mg/dL [facility] Comment:Desirable HDL: great er than 40 mg/dL Note: This HDL assay may give artificially low results in patients with liver disease. Blood Venous blood specimen / Unknown 03/30/2025 10:39 AM EDT 03/30/2025 11:21 AM EDT us Palmer Name MD LAB BLOOD ORDERABLES Final Resul t [facility] [address] [place] [address] [phone] * (ABNORMAL) Comprehensive Metabolic Panel (03/30/2025 10:39 AM EDT) Sodium 140 135 - 145 mmol/L [facility] Potassium 4.3 3.3 - 5.1 mmol/L [facility] Chloride 105 96 - 108 mmol/L [facility] Carbon Dioxide 26 22 - 29 mmol/L [facility] Anion Gap 13 12 - 20 [facility] Urea Nitrogen (BUN) 23(H) 9 - 16 mg/dL [facility] Creatinine, Serum 0.69 0.5 - 1.4 mg/dL [facility] Estimated Glomerular Filt Rate >60 [facility] Comment:Chronic Kidney Disea se: Estimated GFR < 60 mL/min/1.10f5Mnbnro Kidney Disease: Estimated GFR < 15 mL/min/1.73m2 Glucose 345(H) 60 - 115 mg/dL [facility] Calcium 9.2 8.4 - 10.2 mg/dL [facility] Bilirubin, Total 0.6 0.0 - 1.0 mg/dL [facility] Aspartate Amino Transferase 21 5 - 37 U/L [facility] Alanine Aminotransferase 20 0 - 40 U/L [facility] Total Protein 7.4 6.5 - 8.0 g/dL [facility] Albumin Level 4.4 3.5 - 5.0 g/dL [facility] Alkaline Phosphatase 131(H) 39 - 117 U/L [facility] Blood Venous blood specimen / Unknown 03/30/2025 10:39 AM EDT 03/30/2025 11:21 AM EDT us Palmer Hernández MD LAB BLOOD ORDERABLES Final Resul t [facility] [address] [place] [phone] [phone] * POCT Glucose (03/30/2025 10:01 AM EDT) Only the most recent of2 resultswithin the time period is included. Pathologist [facility] Glucose Blood, POC 167 60 - 200 mg/dL QC Media Lot # [id number] Lot# Expiration Date Blood Capillary blood specimen / Unknown 03/30/2025 10:01 AM EDT Result Edgar Hernández MD POINT OF CARE TEST ENTER/EDIT OR DERABLES Final Result * POCT Rapid COVID Ag (03/16/2025 9:56 AM EDT) Rapid COVID Ag Negative Swab 03/16/2025 9:56 AM EDT us Omar Salazar MD POINT OF CARE TEST ENTER/EDIT OR DERABLES Final Result * (ABNORMAL) POCT A1c (03/16/2025 9:56 AM EDT) Only the most recent of2 resultswithin the time period is included. Hemoglobin A1C 13.5(A) 4.0 - 5.7 % Blood 03/16/2025 9:56 AM EDT us Omar Salazar MD POINT OF CARE TEST ENTER/EDIT OR DERABLES Final Result * POCT urinalysis dipstick manually resulted (03/16/2025 9:56 AM EDT) Color, UA Yellow Clarity, UA Clear Glucose, UA Many Comment:500 mg/dL Bilirubin, UA Negative Ketones, UA Positive Comment:Trace Spec Grav, UA 1.015 Blood, UA Negative Negative, None Detected pH, UA 5.5 Protein, UA Trace Urobilinogen, UA 0.2 Leukocytes, UA Negative Negative, Rare, Trace Nitrite, UA Negative Negative, None Detected Urine 03/16/2025 9:56 AM EDT Omar Salazar MD POINT OF CARE TEST ENTER/EDIT OR DERABLES Final Result from Last 3 Months [facility] ADULT DENTAL - [place]SN FULL (MEDICAID) Care Teams Hotel Superintendent Relationship Specialty Start Date End Date Name, MD Palmer [address] [place] [address] PCP - General Family Medicine 12/14/15 Jes Olsen PharmD [address] [place] [address] Pharmacist Internal Medicine 08/13/23
== END 2025-03-30 10:34 | disposition home or self-care (01) ==
LOC: HO.HHCL 10:33
PROVIDERS: PCP Internal Medicine Geriatric Medicine; Visit Provider Internal Medicine Geriatric Medicine
DX: E11.65 Type 2 diabetes mellitus with hyperglycemia (principal); E11.42 Type 2 diabetes mellitus with diabetic polyneuropathy; Z79.4 Long term (current) use of insulin
CPT/HCPCS: 36415; 80053; 80061; 82043; 82570